=== PATIENT | female | born 1930 | race Caucasian/White ===

== ENCOUNTER 2016-12-14 05:47 | Emergency (ER) | payer MEDICARE, OTHER ==
--- NOTE | 2016-12-14 06:14 | EDM.PDOC ---
[id number] Chief Complaint: Respiratory Problem Stated Complaint: COUGH/DIZZY/EAR BUZZING Time Seen by Provider: 12/14/16 06:04 - Related Data Allergies/ADRs: Allergies Allergy/AdvReac Type Severity Reaction Status Date / Time nitrofurantoin Allergy Rash Verified 12/14/16 06:09 house dust AdvReac Cough Verified 12/14/16 05:59 peanut AdvReac Cough Verified 12/14/16 05:59 Sulfa (Sulfonamide AdvReac Diarrhea Verified 12/14/16 05:59 Antibiotics) popcorn AdvReac Cough Uncoded 10/08/15 14:39 Home Meds: Home Meds Aspirin [Ecotrin] 81 mg PO DAILY 11/09/14 [History] Fluticasone Propionate [Flovent HFA 110 MCG] 1 puff INH BID 11/09/14 [History] Furosemide 60 mg PO DAILY 11/09/14 [History] Isosorbide Mononitrate [Imdur] 15 mg PO DAILY 11/09/14 [History] Loratadine [Claritin] 10 mg PO DAILY PRN 11/09/14 [History] Metoprolol Succinate 50 mg PO DAILY 11/09/14 [History] Multivitamin [Multivitamins] 1 tab PO DAILY 11/09/14 [History] Ondansetron [Ondansetron ODT] 2 tab PO Q8HR PRN 01/07/15 [History] Polyethylene Glycol 3350 [MiraLAX] 17 gm PO DAILY 02/17/15 [History] Sennosides/Docusate Sodium [Senna-Docusate Sodium] 2 cap PO BID PRN 02/17/15 [ History] Albuterol Sulfate [Proair Respiclick] 90 mcg IH Q4H PRN 04/01/15 [History] Calcium Carbonate/Vitamin D3 [Calcium 500-Vit D3 200 Caplet] 1 tab PO DAILY 04/14 [History] Clotrimazole [Lotrimin AF 1% Top Soln] 1 applic TP DAILY PRN 10/07/15 [History] amLODIPine Bes/Olmesartan Med [Arely 10-40 MG] 5 mg PO DAILY 10/07/15 [History] Meclizine [Antivert] 25 mg PO Q8H PRN #30 tablet 01/16/16 [Rx] Acetaminophen with Codeine [Tylenol with Codeine #3 Tablet] 1 each PO Q4H PRN [History] Ascorbate Calcium [Vitamin C] 500 mg PO DAILY 12/14/16 [History] Ferrous Sulfate 650 mg PO DAILY 12/14/16 [History] Losartan [Cozaar] 50 mg PO DAILY 12/14/16 [History] Ofloxacin [Floxin 0.3% Otic Soln] 5 drop EARRT BID 12/14/16 [History] atorvaSTATin [Lipitor] 10 mg PO DAILY 12/14/16 [History] Course - Vital Signs Last Recorded V/S: Last Vital Signs Temp 36.4 C 12/14/16 05:55 Pulse 75 12/14/16 08:45 Resp 18 12/14/16 08:45 BP 141/78 H 12/14/16 08:45 Pulse Ox 94 L 12/14/16 08:45 - Orders/Labs/Meds Labs: Laboratory Tests 12/14/16 12/14/16 12/14/16 Range/Units 06:28 06:28 06:28 WBC 8.03 (3.98-10.04) K/mm3 RBC 4.20 (3.98-5.22) M/mm3 Hgb 12.2 (11.2-15.7) gm/L Hct 37.8 (34.1-44.9) % MCV 90.0 (79.4-94.8) fl MCH 29.0 (25.6-32.2) pg MCHC 32.3 (32.2-35.5) g/dl RDW Std Deviation 45.5 (36.4-46.3) fL Plt Count 204 (182-369) K/mm3 MPV 9.5 (9.4-12.3) fl Neutrophils % (Manual) 73 H (40-60) % Band Neutrophils % 2 (0-10) % Lymphocytes % (Manual) 18 L (20-40) % Atypical Lymphs % 0 % Monocytes % (Manual) 6 (2-10) % Eosinophils % (Manual) 1 (0.7-5.8) % Basophils % (Manual) 0 L (0.1-1.2) Platelet Estimate Adequate RBC Morph Comment Normal Sodium 142 (136-145) mEq/L Potassium 3.7 (3.5-5.1) mEq/L Chloride 106 (98-107) mEq/L Carbon Dioxide 29 (21-32) mEq/L Anion Gap 10.7 (5-15) BUN 19 H (7-18) mg/dL Creatinine 1.0 (0.55-1.02) mg/dL Est Cr Clr Drug Dosing 39.20 mL/min Estimated GFR (MDRD) 53 (>60) mL/min BUN/Creatinine Ratio 19.0 H (14-18) Glucose 113 (83-115) mg/dL Calcium 8.6 (8.5-10.1) mg/dL Total Bilirubin 0.5 (0.2-1.0) mg/dL AST 14 L (15-37) U/L ALT 19 (14-59) U/L Alkaline Phosphatase 61 (46-116) U/L CK-MB (CK-2) 1.3 (0-3.6) ng/ml Troponin I < 0.017 (0.00-0.056) ng/mL C-Reactive Protein 2.3 H* (<1.0) mg/dL B-Natriuretic Peptide 154 H (0-100) pg/mL Total Protein 6.4 (6.4-8.2) g/dl Albumin 3.3 L (3.4-5.0) g/dl Globulin 3.1 gm/dL Albumin/Globulin Ratio 1.1 (1-2) Mycoplasma pneumon IgM Negative (NEGATIVE) Meds: Medications Discontinued Medications Generic Name Dose Route Start Last Admin Trade Name Freq PRN Reason Stop Dose Admin Albuterol/Ipratropium 3 ml 12/14/16 06:23 12/14/16 06:36 Duoneb 3.0-0.5 Mg/3 Ml NEB 12/14/16 06:24 3 ml ONETIME ONE Administration Furosemide 40 mg 12/14/16 06:22 12/14/16 06:38 Lasix IVPUSH 12/14/16 06:23 40 mg NOW ONE Administration Sodium Chloride 10 ml 12/14/16 06:21 12/14/16 06:41 Saline Flush FLUSH 10 ml ASDIRECTED PRN Administration Keep Vein Open - Re-Assessments/Exams Free Text/Narrative Re-Assessment/Exam: 12/14/16 08;00. Have assumed care from Dr. Dumont at change of shift. I agree with his history and exam. Patient's main difficulty coming and is just frequent worsening cough over the past 10 days or so. The cough has been nonproductive but very annoying making it extremely difficult for her to sleep. Of note when asking about looking at her medication she states that she was recently started on losartan several weeks ago due to increased blood pressure readings. There is strong likelihood that she may be sensitive to that and does that may be her underlying problem triggering her uncontrollable coughing. Her chest x-ray looks good. White blood count was normal., CK-MB, BNP as well as other labs were all normal. Therefore we are going to stop the losartin. I've also asked that she work with her albuterol nebulizer when she is having more difficulty coughing like this. Discharge instructions as documented. Departure - Departure Time of Disposition: 08:23 Disposition: Home, Self-Care 01 Condition: fair Clinical Impression: Bronchitis Instructions: Acute Bronchitis, [id number] Referrals: Harmony Jordan, TECHNICAL ASST [Primary Care Provider] - Forms: ED Department Discharge Additional Instructions: stop the Lorsartin, that is likely causing your cough or at least contributing to your current frequent coughing. Continue to use your flonase and also use your albuterol inhaler 3 to 4 times daily to help reduce your coughing., drink plenty of water, cough drops, lemon drops as needed. Tussinex cough medication if needed for severe cough, especially at night to help you rest. Check your blood pressure twice daily and keep a log of that. Call for appointment to see Carmelita Jordan later this week. Bring your blood pressure readings in with you for that appointment. Return to ED as needed <Dc Dumont - Last Filed: 12/21/16 07:14> ED HISTORY OF PRESENT ILLNESS - General Source of Information: Reports: Patient History Limitations: Reports: No limitations - History of Present Illness INITIAL COMMENTS - FREE TEXT/NARRATIVE: 86-year-old lady attends the ED due to paroxysmal severe cough which she's had for the better part of 10 days. Seems to be worsening. Cough awoke her from sleep with a choking sensation she believes she did cough up some sputum but swallowed it. No associated fever or chills. Hoarse voice. Can't stop coughing at times. Associated dizziness which we attributed to vertigo which she's had in the past. She comes with cotton ball in her right ear. Denies any drainage from either ear. Does not wear hearing aids. Slightly runny nose. Appetite is fair been fair. She appreciates abdominal bloating and distention. Bowl function is still fairly normal. No vertigo at rest. This only with head movement. She has had this several times in the past. Denies any ear pain. Denies any central chest pain . Note she takes Lasix 60 mg daily suggesting chronic congestive failure. She states her legs are always swollen worse on the right as compared to the left. Usually wears compression stockings daily. Even her legs goes down overnight during rest. Symptom Onset Date: 12/14/16 (Vera paroxysmal cough that wouldn't quit this morning. However she's been coughing for the last 10-12 days. Intimal sputum production.) Timing/Duration: Reports: Day(s):, Getting worse Severity: moderate Location, General: Reports: chest (Paroxysmal coughing.), other (Occasional vertigo.) Improves with: Reports: None Worsens with: Reports: None Context, General: Reports: Other (Awoke from sleep with current symptoms.). Denies: Activity, Exercise, Lifting, Sick contact, Trauma Associated Symptoms (General): Reports: cough (Severe paroxysmal cough with intermittent sputum production), shortness of breath, weakness. 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 chronic cough Gastrointestinal History: Reports: Bowel obstruction, Chronic constipation, GERD (Occasional), Hemorrhoids Other Genitourinary History: Some renal problems with chemo Other OB/BYN History: hysterectomy Musculoskeletal History: Reports: Arthritis, Osteoarthritis, Osteoporosis, Other (see below) (Right total hip replacement) Other Musculoskeletal History: stenosis on back that was removed Neurological History: Reports: Vertigo (Recurrent problems with vertigo.), Other (see below) (CT scan reveals extensive small vessel ischemic changes. No lacunar infarcts. 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 - Past Surgical History Other GI Surgeries/Procedures: bowel resection, post op nausea and vomitting Social & Family History - Tobacco Use Smoking Status *Q: Never Smoker Second Hand Smoke Exposure: No - Alcohol Use Days Per Week of Alcohol Use: 0 Number of Drinks Per Day: 0 Total Drinks Per Week: 0 - Recreational Drug Use Recreational Drug Use: No Drug Use in Last 12 Months: No - Living Situation & Occupation Living situation: Reports: Occupation: retired ED ROS GENERAL - Review of Systems Review Of Systems: See Below Constitutional: Reports: malaise, weakness, fatigue, decreased appetite, weight loss. Denies: fever, chills HEENT: Reports: Hearing loss (Hearing is muffled bilaterally.), Other (Feels a homing buzzing in her right ear since she was coughing so much. ie. tinnitus ). Denies: Ear pain Respiratory: Reports: Shortness of Breath, Cough (Paroxysmal). Denies: Wheezing , Pleuritic Chest Pain, Hemoptysis Cardiovascular: Reports: Blood pressure problem, Dyspnea on exertion, Lightheadedness (At time). Denies: Chest pain, Claudication, Orthopnea ( Usually well controlled with medication), Syncope Endocrine: Reports: fatigue GI/Abdominal: Reports: Constipation, Other (Has appreciated increased abdominal bloat and increased flatus.) : Reports: frequency, incontinence (Mostly stress incontinence.) Musculoskeletal: Reports: neck pain, shoulder pain, back pain, joint pain ( Knees and hips. Has had right total hip replacement) Skin: Reports: no symptoms Neurological: Reports: Dizziness, Difficulty Walking (Usually uses a walker.), Weakness (Lower extremities). Denies: Headache (Vertigo at times.), Numbness, Paresthesia, Pre-Existing Deficit, Seizure, Syncope, Tingling, Tremors, Trouble Speaking, Gait Disturbance Psychiatric: Reports: Anxiety (Mildly anxious.) Hematologic/Lymphatic: Reports: no symptoms Immunologic: Reports: no symptoms ED EXAM, GENERAL - Physical Exam Exam: See Below Exam Limited By: No limitations General Appearance: alert, WD/WN, no apparent distress, other (Appears to loss weight since I have seen her last period) Eye Exam: bilateral eye: normal inspection (Mild pallor of the lower peripheral margins.) Ears: other (Tympanic membranes are not visible due to cerumen impaction bilaterally up against her eardrums.) Ear Exam: bilateral ear: foreign body (Both are impacted by cerumen.) Throat/Mouth: Normal inspection, Normal lips, Normal oropharynx, Other Head: atraumatic (Slight erythema of the posterior oropharynx. Not infected more irritation from coughing so much.), normocephalic Neck: normal inspection, supple, non-tender. No: carotid bruit, lymphadenopathy (L), lymphadenopathy (R) Respiratory/Chest: no respiratory distress, no accessory muscle use, chest non- tender, decreased breath sounds (Vessels are minimally decreased at both bases.) , rales (Few rales appreciated left base.), wheezing (GERD wheezes bilateral bases on expiration only.), other (Port-A-Cath present left upper anterior chest. She used this for chemotherapy for her B-cell lymphoma.) Cardiovascular: normal peripheral pulses, regular rate, rhythm, no murmur, no rub. No: no edema, no gallop Peripheral Pulses: 1+: posterior tibial (L), posterior tibial (R), dorsalis pedis (L), dorsalis pedis (R) GI/Abdominal: normal bowel sounds, soft, non tender, no organomegaly, distended (Few slightly distended intubated to percussion in all 4 quadrants. He aerophagia.) Back Exam: normal inspection, full range of motion, other (Mild kyphosis of the thoracic spine) Extremities: pedal edema (She has 2+ pitting edema on the right side and 1+ pitting edema on the left lower extremity to about mid tib-fib.), limited range of motion (Knees and hips. Evidence post arthritic changes in both knees.) Neurological: alert, oriented, CN II-XII intact, normal cognition, no motor/ sensory deficits Psychiatric: normal affect, normal mood Skin Exam: Warm, Dry, Intact, No rash (Slightly pallid.), Pallor EKG INTERPRETATION EKG Date: 12/14/16 Time: 06:30 Rhythm: NSR Rate (beats/min): 80 [place]: LAD-left axis deviation (Mild at -22) P-wave: present QRS: other (Initial poor R-wave progression.) ST-T: other (Nonspecific T wave inversion in lead aVL.) QT: normal EKG Interpretation Comments: No signs of ischemia. Course - Orders/Labs/Meds Labs: Laboratory Tests 12/14/16 12/14/16 12/14/16 Range/Units 06:28 06:28 06:28 WBC 8.03 (3.98-10.04) K/mm3 RBC 4.20 (3.98-5.22) M/mm3 Hgb 12.2 (11.2-15.7) gm/L Hct 37.8 (34.1-44.9) % MCV 90.0 (79.4-94.8) fl MCH 29.0 (25.6-32.2) pg MCHC 32.3 (32.2-35.5) g/dl RDW Std Deviation 45.5 (36.4-46.3) fL Plt Count 204 (182-369) K/mm3 MPV 9.5 (9.4-12.3) fl Neutrophils % (Manual) 73 H (40-60) % Band Neutrophils % 2 (0-10) % Lymphocytes % (Manual) 18 L (20-40) % Atypical Lymphs % 0 % Monocytes % (Manual) 6 (2-10) % Eosinophils % (Manual) 1 (0.7-5.8) % Basophils % (Manual) 0 L (0.1-1.2) Platelet Estimate Adequate RBC Morph Comment Normal Sodium 142 (136-145) mEq/L Potassium 3.7 (3.5-5.1) mEq/L Chloride 106 (98-107) mEq/L Carbon Dioxide 29 (21-32) mEq/L Anion Gap 10.7 (5-15) BUN 19 H (7-18) mg/dL Creatinine 1.0 (0.55-1.02) mg/dL Est Cr Clr Drug Dosing 39.20 mL/min Estimated GFR (MDRD) 53 (>60) mL/min BUN/Creatinine Ratio 19.0 H (14-18) Glucose 113 (83-115) mg/dL Calcium 8.6 (8.5-10.1) mg/dL Total Bilirubin 0.5 (0.2-1.0) mg/dL AST 14 L (15-37) U/L ALT 19 (14-59) U/L Alkaline Phosphatase 61 (46-116) U/L CK-MB (CK-2) 1.3 (0-3.6) ng/ml Troponin I < 0.017 (0.00-0.056) ng/mL C-Reactive Protein 2.3 H* (<1.0) mg/dL B-Natriuretic Peptide 154 H (0-100) pg/mL Total Protein 6.4 (6.4-8.2) g/dl Albumin 3.3 L (3.4-5.0) g/dl Globulin 3.1 gm/dL Albumin/Globulin Ratio 1.1 (1-2) Mycoplasma pneumon IgM Negative (NEGATIVE) Meds: Medications Discontinued Medications Generic Name Dose Route Start Last Admin Trade Name Freq PRN Reason Stop Dose Admin Albuterol/Ipratropium 3 ml 12/14/16 06:23 12/14/16 06:36 Duoneb 3.0-0.5 Mg/3 Ml NEB 12/14/16 06:24 3 ml ONETIME ONE Administration Furosemide 40 mg 12/14/16 06:22 12/14/16 06:38 Lasix IVPUSH 12/14/16 06:23 40 mg NOW ONE Administration Sodium Chloride 10 ml 12/14/16 06:21 12/14/16 06:41 Saline Flush FLUSH 10 ml ASDIRECTED PRN Administration Keep Vein Open - Radiology Interpretation Free Text/Narrative:: 86-year-old female attends the ED primarily due to paroxysmal severe cough that awoke her from sleep this produced very this morning. She's had a paroxysmal cough for several days. She can't necessarily ascertain it is worse when she lies down at nighttime. She has a history of asthma that is aggravated by cool air. She was coughing hard tonight and felt a buzzing sensation in her right ear and arise with cotton paige in it. She reports her hearing is muffled. She hasn't had acute vertigo episodes last few days one was yesterday morning. No falls. She has a history of recurrent benign positional vertigo. No associated nausea or vomiting. She reports she's been eating and drinking well. She does feel her abdomen is more bloated with much more gas than normal. One of her medications was changed 2 weeks ago but she's not sure which one. Exam reveals edema in both lower extremities. History of congestive heart failure. Lungs do not sound wet. They have mild expiratory wheezes at the bases. No clinical evidence of rhonchi. Questioning whether she is suffering a mild exacerbation of congestive heart failure with cardiac asthma and cough related to lung congestion. Plan saline lock. Lasix 40 mg IV. Note she normally takes 60 mg of Lasix in the mornings. Lab work will be done including mycoplasma 2 titer. Both ears were plugged with cerumen and will be irrigated by nursing staff. One view chest x-ray one view of the abdomen to be done. ECG reveals sinus rhythm at 80 per minute with no signs of ischemia.
[2016-12-14] MEDS ORDERED: Sodium Chloride 0.9% 10 ML Syringe FLUSH PRN (06:21)
[2016-12-14] MEDS ORDERED: Furosemide 40 MG/4 ML VIAL IVPUSH ONE (06:22)
[2016-12-14] MEDS ORDERED: Albuterol/Ipratropium 3.0-0.5 MG/3 ML Neb Soln NEB ONE (06:23)
--- NOTE | 2016-12-14 07:16 | CR ---
Abdomen: Supine view of the abdomen was obtained. Comparison: Previous abdominal x-ray of 11/12/14. Right hip prosthesis is seen. Degenerative change and mild scoliosis is noted within the spine. Vascular calcification is seen within the pelvis. Bowel gas pattern is within normal limits. Impression: 1. Incidental findings. Diagnostic code #2
--- NOTE | 2016-12-14 07:16 | CR ---
Chest: Frontal view of the chest was obtained. Comparison: Previous chest x-ray of 01/08/15. Heart is enlarged. Left-sided infusion port is seen. Lungs are hyperinflated but clear. Bony structures are grossly intact. Impression: 1. Cardiomegaly. Infusion port is seen from the left side. 2. Emphysematous change. 3. Nothing acute is otherwise seen on frontal chest x-ray. Diagnostic code #2
[2016-12-14 09:16] VITALS: BP 141/78
== END 2016-12-14 08:45 | disposition home or self-care (01) ==
LOC: JD.ED 05:47
DX: J40 Bronchitis, not specified as acute or chronic (principal); I11.0 Hypertensive heart disease with heart failure; I50.9 Heart failure, unspecified; I48.91 Unspecified atrial fibrillation; J45.909 Unspecified asthma, uncomplicated; K21.9 Gastro-esophageal reflux disease without esophagitis; Z90.710 Acquired absence of both cervix and uterus; M19.90 Unspecified osteoarthritis, unspecified site; D64.9 Anemia, unspecified; Z88.8 Allergy status to other drugs, medicaments and biological substances; Z91.010 Allergy to peanuts; Z91.018 Allergy to other foods; Z91.09 Other allergy status, other than to drugs and biological substances; Z88.2 Allergy status to sulfonamides; Z79.82 Long term (current) use of aspirin; Z79.899 Other long term (current) drug therapy
CPT/HCPCS: 36415; 71010; 74000; 80053; 82553; 83880; 84484; 85025; 86140; 86738; 93005; 94664; 96374; 99284; J1940; J7050

== ENCOUNTER 2017-10-18 20:08 | Inpatient (IN) | payer MEDICARE, OTHER ==
[2017-10-18] MEDS ORDERED: Sodium Chloride 0.9% 10 ML Syringe FLUSH PRN (20:21)
[2017-10-18] MEDS ORDERED: Albuterol/Ipratropium 3.0-0.5 MG/3 ML Neb Soln NEB ONE (20:25)
[2017-10-18] MEDS ORDERED: cefTRIAXone 2 GM in Sodium Chloride 0.9% 100 ML IV ONE (20:25)
--- NOTE | 2017-10-18 20:35 | EDM.PDOC ---
ED HPI GENERAL MEDICAL PROBLEM - General Chief Complaint: Fever Stated Complaint: FEVER/COUGH/DX W PNEUMONIA Time Seen by Provider: 10/18/17 20:16 Source of Information: Reports: Patient, Family History Limitations: Reports: No Limitations - History of Present Illness INITIAL COMMENTS - FREE TEXT/NARRATIVE: The patient presents with a cough, fever and shortness of breath. This started last week and she was seen by the [facility] [place] on Wednesday and diagnosed with pneumonia. She was put on levaquin. She has not gotten any better. She still has a fever and productive cough. She is also short of breath. She is weak and not eating as much. She has no chest pain, abdominal pain, nausea or vomiting. Onset: Gradual Duration: Day(s): (5) Severity: Moderate Improves with: Reports: None Worsens with: Reports: None Associated Symptoms: Reports: Cough, cough w sputum, Fever/Chills, Loss of Appetite, Shortness of Breath. Denies: Chest Pain, Headaches, Nausea/Vomiting Chest Pain Score (Numeric/FACES): 4 - Related Data Allergies Allergy/AdvReac Type Severity Reaction Status Date / Time nitrofurantoin Allergy Rash Verified 10/18/17 20:15 house dust AdvReac Cough Verified 10/18/17 20:15 peanut AdvReac Cough Verified 10/18/17 20:15 Sulfa (Sulfonamide AdvReac Diarrhea Verified 10/18/17 20:15 Antibiotics) popcorn AdvReac Cough Uncoded 10/08/15 14:39 Home Meds: Home Meds Aspirin [Ecotrin] 81 mg PO DAILY 11/09/14 [History] Fluticasone Propionate [Flovent HFA 110 MCG] 1 puff INH BID 11/09/14 [History] Furosemide 60 mg PO DAILY 11/09/14 [History] Isosorbide Mononitrate [Imdur] 15 mg PO DAILY 11/09/14 [History] Loratadine [Claritin] 10 mg PO DAILY PRN 11/09/14 [History] Metoprolol Succinate 50 mg PO DAILY 11/09/14 [History] Multivitamin [Multivitamins] 1 tab PO DAILY 11/09/14 [History] Ondansetron [Ondansetron ODT] 2 tab PO Q8HR PRN 01/07/15 [History] Polyethylene Glycol 3350 [MiraLAX] 17 gm PO DAILY 02/17/15 [History] Sennosides/Docusate Sodium [Senna-Docusate Sodium] 2 cap PO BID PRN 02/17/15 [ History] Albuterol Sulfate [Proair Respiclick] 90 mcg IH Q4H PRN 04/01/15 [History] Calcium Carbonate/Vitamin D3 [Calcium 500-Vit D3 200 Caplet] 1 tab PO DAILY 04/14 [History] Acetaminophen with Codeine [Tylenol with Codeine #3 Tablet] 1 each PO Q4H PRN [History] atorvaSTATin [Lipitor] 10 mg PO DAILY 12/14/16 [History] Allopurinol [Zyloprim] 200 mg PO DAILY 10/18/17 [History] Cranberry Fruit Concentrate [Cranberry] 450 mg PO DAILY 10/18/17 [History] Rivaroxaban [Xarelto] 20 mg PO DAILY 10/18/17 [History] amLODIPine Bes/Olmesartan Med [Arely 10-40 MG] 1 tab PO DAILY 10/18/17 [History] oxyCODONE HCl/Acetaminophen [Percocet 5-325 mg Tablet] 1 tab PO ASDIRECTED PRN 10/18/17 [History] Past Medical History HEENT History: Reports: Impaired Vision, Macular Degeneration Other HEENT History: wears glasses Cardiovascular History: Reports: Afib, Heart Failure, Hypertension, SOB on Exertion Other Cardiovascular History: DVT, lower extremity edema, Afib was briefly post up Respiratory History: Reports: Asthma Other Respiratory History: asthma is trigered by allergens and cold weather and upper respiratory infections. 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 - Past Surgical History HEENT Surgical History: Reports: Cataract Surgery Musculoskeletal Surgical History: Reports: Hip Replacement Social & Family History - Tobacco Use Smoking Status *Q: Never Smoker Second Hand Smoke Exposure: No - Alcohol Use Days Per Week of Alcohol Use: 0 Number of Drinks Per Day: 0 Total Drinks Per Week: 0 - Recreational Drug Use Recreational Drug Use: No Drug Use in Last 12 Months: No - Living Situation & Occupation Living situation: Reports: Occupation: Retired ED ROS GENERAL - Review of Systems Review Of Systems: See Below Constitutional: Reports: Fever, Chills, Malaise, Weakness, Fatigue HEENT: Reports: No Symptoms Respiratory: Reports: Shortness of Breath, Cough, Sputum Cardiovascular: Reports: No Symptoms Endocrine: Reports: No Symptoms GI/Abdominal: Reports: No Symptoms : Reports: No Symptoms Musculoskeletal: Reports: No Symptoms ED EXAM, GENERAL - Physical Exam Exam: See Below Exam Limited By: No Limitations General Appearance: Alert, No Apparent Distress Ears: Normal External Exam Nose: Normal Inspection Head: Atraumatic, Normocephalic Neck: Normal Inspection Respiratory/Chest: No Respiratory Distress, Rhonchi Cardiovascular: Regular Rate, Rhythm, No Edema, No Murmur GI/Abdominal: Soft, Non-Tender, No Organomegaly, No Mass Back Exam: Normal Inspection Extremities: Normal Inspection Course - Vital Signs Last Recorded V/S: Last Vital Signs Temp 100.1 F 10/18/17 20:31 Pulse 91 10/18/17 20:31 Resp 18 10/18/17 20:31 BP 175/68 H 10/18/17 20:31 Pulse Ox 97 10/18/17 20:31 - Orders/Labs/Meds Orders: Active Orders 24 hr Category Date Time Status Cardiac Monitoring [RC] . DIRECTED Care 10/18/17 20:21 Active Oxygen Therapy [RC] PRN Care 10/18/17 20:21 Active Peripheral IV Care [RC] . DIRECTED Care 10/18/17 20:22 Active RT Aerosol Therapy [RC] ASDIRECTED Care 10/18/17 20:25 Active Chest 2V [CR] Stat Exams 10/18/17 20:23 Taken CULTURE BLOOD [BC] Stat Lab 10/18/17 20:38 Received CULTURE BLOOD [BC] Stat Lab 10/18/17 20:47 Received INFLUENZA A+B AG SCREEN [RM] Stat Lab 10/18/17 21:57 Received UA W/MICROSCOPIC [URIN] Stat Lab 10/18/17 20:21 Ordered Sodium Chloride 0.9% [Saline Flush] Med 10/18/17 20:21 Active 10 ml FLUSH ASDIRECTED PRN Blood Culture x2 Reflex Set [OM.PC] Stat Oth 10/18/17 20:23 Ordered Peripheral IV Insertion Adult [OM.PC] Stat Oth 10/18/17 20:21 Ordered Medication Orders Sodium Chloride (Saline Flush) 10 ml FLUSH ASDIRECTED PRN PRN Reason: Keep Vein Open Last Admin: 10/18/17 21:14 Dose: 10 ml Labs: Laboratory Tests 10/18/17 10/18/17 10/18/17 Range/Units 20:38 20:38 20:38 WBC 11.35 H (3.98-10.04) K/mm3 RBC 4.76 (3.98-5.22) M/mm3 Hgb 13.5 (11.2-15.7) gm/L Hct 41.7 (34.1-44.9) % MCV 87.6 (79.4-94.8) fl MCH 28.4 (25.6-32.2) pg MCHC 32.4 (32.2-35.5) g/dl RDW Std Deviation 49.2 H (36.4-46.3) fL Plt Count 217 (182-369) K/mm3 MPV 10.1 (9.4-12.3) fl Neut % (Auto) 69.7 (34.0-71.1) % Lymph % (Auto) 13.0 L (19.3-51.7) % [place] % (Auto) 15.2 H (4.7-12.5) % Eos % (Auto) 1.7 (0.7-5.8) Baso % (Auto) 0.3 (0.1-1.2) % Neut # (Auto) 7.91 H (1.56-6.13) K/mm3 Lymph # (Auto) 1.48 (1.18-3.74) K/mm3 [place] # (Auto) 1.73 H (0.24-0.36) K/mm3 Eos # (Auto) 0.19 (0.04-0.36) K/mm3 Baso # (Auto) 0.03 (0.01-0.08) K/mm3 Manual Slide Review Normal smear Sodium 142 (136-145) mEq/L Potassium 3.6 (3.5-5.1) mEq/L Chloride 104 (98-107) mEq/L Carbon Dioxide 27 (21-32) mEq/L Anion Gap 14.6 (5-15) BUN 27 H (7-18) mg/dL Creatinine 1.4 H (0.55-1.02) mg/dL Est Cr Clr Drug Dosing 27.50 mL/min Estimated GFR (MDRD) 36 (>60) mL/min BUN/Creatinine Ratio 19.3 H (14-18) Glucose 205 H (83-115) mg/dL Lactic Acid 1.3 (0.4-2.0) mmol/L Calcium 9.3 (8.5-10.1) mg/dL Total Bilirubin 0.4 (0.2-1.0) mg/dL AST 16 (15-37) U/L ALT 24 (14-59) U/L Alkaline Phosphatase 52 (46-116) U/L C-Reactive Protein 0.5 (<1.0) mg/dL Total Protein 6.9 (6.4-8.2) g/dl Albumin 3.7 (3.4-5.0) g/dl Globulin 3.2 gm/dL Albumin/Globulin Ratio 1.2 (1-2) Meds: Medications Generic Name Dose Route Start Last Admin Trade Name [place] PRN Reason Stop Dose Admin Sodium Chloride 10 ml 10/18/17 20:21 10/18/17 21:14 Saline Flush FLUSH 10 ml ASDIRECTED PRN Administration Keep Vein Open Discontinued Medications Generic Name Dose Route Start Last Admin Trade Name Paris PRN Reason Stop Dose Admin Albuterol/Ipratropium 3 ml 10/18/17 20:25 10/18/17 20:59 Duoneb 3.0-0.5 Mg/3 Ml NEB 10/18/17 20:26 3 ml ONETIME ONE Administration Ceftriaxone Sodium 2 gm/ 100 mls @ 200 mls/hr 10/18/17 20:25 10/18/17 21:14 Sodium Chloride IV 10/18/17 20:54 200 mls/hr ONETIME ONE Administration - Re-Assessments/Exams Free Text/Narrative Re-Assessment/Exam: 10/18/17 20:36 I ordered an IV saline lock, CXR, influenza, labs, blood cultures and rocephin. 10/18/17 22:15 Her CXR shows an infiltrate in the right lower lung. Her WBC is slightly elevated at 11.35. Her creatinine is slightly elevated at 1.4. Her glucose is 205. Her lactic acid is normal is 1.3. I do not have the influenza back. She has pneumonia and she failed outpatient therapy. I feel she needs to be admitted. I called Dr Sanderson and he agreed to the admission. Departure - Departure Time of Disposition: 22:20 Disposition: Admitted As Inpatient 68 Condition: Fair Clinical Impression: Pneumonia Qualifiers: Pneumonia type: due to unspecified organism Laterality: right Lung location: middle lobe of lung Qualified Code(s): J18.1 - Lobar pneumonia, unspecified organism - Discharge Information Referrals: Harmony Jordan NP [Primary Care Provider] - Forms: ED Department Discharge - My Orders Last 24 Hours: My Active Orders 10/18/17 20:21 Cardiac Monitoring [RC] . DIRECTED Oxygen Therapy [RC] PRN UA W/MICROSCOPIC [URIN] Stat Sodium Chloride 0.9% [Saline Flush] 10 ml FLUSH ASDIRECTED PRN Peripheral IV Insertion Adult [OM.PC] Stat 10/18/17 20:22 Peripheral IV Care [RC] . DIRECTED 10/18/17 20:23 Chest 2V [CR] Stat Blood Culture x2 Reflex Set [OM.PC] Stat 10/18/17 20:25 RT Aerosol Therapy [RC] ASDIRECTED 10/18/17 20:38 CULTURE BLOOD [BC] Stat 10/18/17 20:47 CULTURE BLOOD [BC] Stat 10/18/17 21:57 INFLUENZA A+B AG SCREEN [RM] Stat - Assessment/Plan Last 24 Hours: My Active Orders 10/18/17 20:21 Cardiac Monitoring [RC] . DIRECTED Oxygen Therapy [RC] PRN UA W/MICROSCOPIC [URIN] Stat Sodium Chloride 0.9% [Saline Flush] 10 ml FLUSH ASDIRECTED PRN Peripheral IV Insertion Adult [OM.PC] Stat 10/18/17 20:22 Peripheral IV Care [RC] . DIRECTED 10/18/17 20:23 Chest 2V [CR] Stat Blood Culture x2 Reflex Set [OM.PC] Stat 10/18/17 20:25 RT Aerosol Therapy [RC] ASDIRECTED 10/18/17 20:38 CULTURE BLOOD [BC] Stat 10/18/17 20:47 CULTURE BLOOD [BC] Stat 10/18/17 21:57 INFLUENZA A+B AG SCREEN [] Stat
[2017-10-18] MEDS ORDERED: Oseltamivir 75 MG Cap PO ONE (22:21)
[2017-10-19] MEDS ORDERED: Acetaminophen/Codeine 300-30 MG Tab PO PRN (00:04)
[2017-10-19] MEDS ORDERED: Acetaminophen/oxyCODONE 325-5 MG Tab PO PRN (00:04)
[2017-10-19] MEDS ORDERED: Ondansetron 4 MG Tab.DIS PO PRN (00:04)
[2017-10-19] MEDS ORDERED: Loratadine 10 MG Tab PO PRN (00:04)
[2017-10-19] MEDS ORDERED: LORazepam 2 MG/ML MDV IVPUSH PRN (00:09)
[2017-10-19] MEDS ORDERED: Metoprolol Tartrate 5 MG/5 ML SDV IVPUSH PRN (00:09)
[2017-10-19] MEDS ORDERED: hydrALAZINE 20 MG/ML SDV IVPUSH PRN (00:09)
[2017-10-19] MEDS ORDERED: Ondansetron 4 MG/2 ML SDV IV PRN (00:22)
[2017-10-19] MEDS ORDERED: Albuterol/Ipratropium 3.0-0.5 MG/3 ML Neb Soln NEB PRN (00:22)
[2017-10-19] MEDS ORDERED: Acetaminophen 325 MG Tab PO PRN (00:22)
--- NOTE | 2017-10-19 00:31 | PCM.HP ---
H&P History of Present Illness - General Date of Service: 10/19/17 Admit Problem/Dx: Admission Diagnosis/Problem Admission Diagnosis/Problem Pneumonia Source of Information: Patient, Provider, RN, RN Notes Reviewed History Limitations: Reports: No Limitations - History of Present Illness Initial Comments - Free Text/Narative: Delilah Negrete is an 87 yo female who since her ED today (10/18/17) with a cough , fever, and shortness of breath. She reports the symptoms started last week and she was seen at the walk-in clinic at [place] on Wednesday and diagnosed with pneumonia. She was started on Levaquin at that time, however symptoms have not gotten any better. She reports she still has a fever and productive cough, along with shortness of breath. She is weak and not eating much. Denied chest pain, abdominal pain, nausea, vomiting. In the yarsani was 100.1. Pulse 91. Respirations 18. BP was high at 175/68. Pulse ox 97%. Labs are obtained: WBC is elevated at 11.35. Hemoglobin is 13.5. Hematocrit 41.7. She was normocytic. Closer elevated at 217,000. Neutrophils are normal at 69.7%. Sodium good 142. Potassium 3.6. Chloride 104. Carbon dioxide 27. Anion gap 14.6. BUN is high at 27. Creatinine is high at 1.4. EGFR is 36. Glucose is 205. Lactic acid 1.3. Calcium 9.3. Total bilirubin 0.4. Liver enzymes looked good with AST of 16, ALT at 24, alkaline phosphatase 52. CRP is 0.5. Albumin is good at 3.7. Influenza returns positive for influenza A. Blood cultures are obtained. She was given 2 g Rocephin in the ED. There is a questionable infiltrate in the right lower lung. She carries a history of: Impaired vision, macular degeneration, A. fib, heart failure, hypertension, DVT, chronic lower extremity edema, asthma triggered by allergens and cold weather, chronic cough, chronic constipation, GERD, hysterectomy, arthritis, osteoporosis, osteoporosis, vertigo, anemia, stage III large beta cell lymphoma, non-Albert lymphoma. Lymphoma was reportedly treated successfully with chemotherapy. She was never a smoker. She says really admitted to the medical floor on telemetry. Her PCP is Harmony Jordan NP at [facility]. Chest Pain Score (Numeric/FACES): 4 - Related Data Allergies/Adverse Reactions: Allergies Allergy/AdvReac Type Severity Reaction Status Date / Time nitrofurantoin Allergy Rash Verified 10/18/17 20:15 house dust AdvReac Cough Verified 10/18/17 20:15 peanut AdvReac Cough Verified 10/18/17 20:15 Sulfa (Sulfonamide AdvReac Diarrhea Verified 10/18/17 20:15 Antibiotics) popcorn AdvReac Cough Uncoded 10/08/15 14:39 Home Medications: Home Meds Aspirin [Ecotrin] 81 mg PO DAILY 11/09/14 [History] Fluticasone Propionate [Flovent HFA 110 MCG] 1 puff INH BID 11/09/14 [History] Furosemide 60 mg PO DAILY 11/09/14 [History] Isosorbide Mononitrate [Imdur] 15 mg PO DAILY 11/09/14 [History] Loratadine [Claritin] 10 mg PO DAILY 11/09/14 [History] Metoprolol Succinate 50 mg PO DAILY 11/09/14 [History] Multivitamin [Multivitamins] 1 tab PO DAILY 11/09/14 [History] Ondansetron [Ondansetron ODT] 2 tab PO Q8HR PRN 01/07/15 [History] Polyethylene Glycol 3350 [MiraLAX] 17 gm PO DAILY 02/17/15 [History] Sennosides/Docusate Sodium [Senna-Docusate Sodium] 2 cap PO BID PRN 02/17/15 [ History] Albuterol Sulfate [Proair Respiclick] 90 mcg IH Q4H PRN 04/01/15 [History] Calcium Carbonate/Vitamin D3 [Calcium 500-Vit D3 200 Caplet] 1 tab PO DAILY 04/14 [History] atorvaSTATin [Lipitor] 10 mg PO DAILY 12/14/16 [History] Allopurinol [Zyloprim] 200 mg PO DAILY 10/18/17 [History] Cranberry Fruit Concentrate [Cranberry] 450 mg PO DAILY 10/18/17 [History] Rivaroxaban [Xarelto] 20 mg PO 1700 10/18/17 [History] amLODIPine Bes/Olmesartan Med [Arely 10-40 MG] 1 tab PO DAILY 10/18/17 [History] oxyCODONE HCl/Acetaminophen [Percocet 5-325 mg Tablet] 1 tab PO Q4HR PRN [History] Past Medical History HEENT History: Reports: Impaired Vision, Macular Degeneration Other HEENT History: wears glasses Cardiovascular History: Reports: Afib, Blood Clots/VTE/DVT, Heart Failure, Hypertension, SOB on Exertion Other Cardiovascular History: DVT, lower extremity edema, Afib was briefly post op Respiratory History: Reports: Asthma Other Respiratory History: asthma is triggered by allergens and cold weather and upper respiratory infections. 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 - Infectious Disease History Infectious Disease History: Reports: Influenza - Past Surgical History Head Surgeries/Procedures: Reports: None HEENT Surgical History: Reports: Cataract Surgery GI Surgical History: Reports: Other (See Below) Other GI Surgeries/Procedures: resection Endocrine Surgical History: Reports: None Neurological Surgical History: Reports: Other (See Below) Other Neurological Surgeries/Procedures: spinal stenosis surgery Musculoskeletal Surgical History: Reports: Hip Replacement Social & Family History - Family History Family Medical History: Noncontributory Oncologic: Reports: Bladder, Bone - Tobacco Use Smoking Status *Q: Never Smoker Second Hand Smoke Exposure: No - Caffeine Use Caffeine Use: Reports: Coffee, Soda - Alcohol Use Days Per Week of Alcohol Use: 0 Number of Drinks Per Day: 0 Total Drinks Per Week: 0 - Recreational Drug Use Recreational Drug Use: No Drug Use in Last 12 Months: No - Living Situation & Occupation Living situation: Reports: Occupation: Retired H&P Review of Systems - Review of Systems: Review Of Systems: See Below General: Reports: Fever, Chills, Malaise, Weakness, Fatigue HEENT: Denies: Ear Pain, Eye Pain, Rhinitis, Sinus Congestion, Sore Throat Pulmonary: Reports: Shortness of Breath, Cough, Sputum Cardiovascular: Reports: Dyspnea on Exertion, Edema (chronic ). Denies: Chest Pain, Palpitations Gastrointestinal: Reports: No Symptoms. Denies: Abdominal Pain, Constipation, Diarrhea, Nausea, Vomiting Genitourinary: Reports: No Symptoms. Denies: Dysuria, Frequency, Burning, Pain , Urgency Musculoskeletal: Reports: No Symptoms Skin: Reports: No Symptoms Psychiatric: Reports: No Symptoms Neurological: Reports: No Symptoms Hematologic/Lymphatic: Reports: No Symptoms Immunologic: Reports: No Symptoms Exam - Exam Exam: See Below - Vital Signs Vital Signs: Last Vital Signs Temp 99.8 F 10/18/17 22:41 Pulse 88 10/18/17 22:41 Resp 22 H 10/18/17 22:41 BP 171/60 H 10/18/17 22:41 Pulse Ox 97 10/18/17 22:41 Weight: 166 lb 11.2 oz - Exam Quality Assessment: DVT Prophylaxis General: Alert, Oriented, Cooperative, Mild Distress HEENT: PERRLA, Hearing Intact, Mucosa Moist & [place], Nares Patent, Normal Nasal Septum, Posterior Pharynx Clear, Conjunctiva Clear, EOMI, EACs Clear, TMs Clear Neck: Supple, Trachea Midline. No: JVD Lungs: Clear to Auscultation, Normal Respiratory Effort, Decreased Breath Sounds Cardiovascular: Regular Rate, Regular Rhythm GI/Abdominal Exam: Normal Bowel Sounds, Soft, Non-Tender, No Organomegaly, No Distention, No Abnormal Bruit, No Mass, Pelvis Stable (Female) Exam: Deferred Rectal (Female) Exam: Deferred Back Exam: Normal Inspection, Full Range of Motion Extremities: Normal Inspection, Normal Range of Motion, Non-Tender, Normal Capillary Refill, Pedal Edema (1+ chronic per pt. report) Peripheral Pulses: 0: Posterior Tibial (L), Posterior Tibial (R), Dorsalis Pedis (L), Dorsalis Pedis (R), 2+: Radial (L), Radial (R) Skin: Warm, Dry, Intact Neurological: Cranial Nerves Intact (grossly ) Neuro Extensive - Mental Status: Alert, Oriented x3, Normal Mood/Affect, Normal Cognition Psychiatric: Alert, Normal Affect, Normal Mood - Patient Data Result Diagrams: 10/18/17 20:38 10/18/17 20:38 *Q Meaningful Use (ADM) - VTE *Q VTE Criteria *Q: - Stroke *Q Stroke Criteria *Q: - AMI *Q AMI Criteria *Q: - Problem List (1) Influenza A SNOMED Code(s): 674084624 ICD Code: J10.1 - FLU DUE TO OTH IDENT INFLUENZA VIRUS W OTH RESP MANIFEST Status: Acute Priority: High Current Visit: Yes (2) Macular degeneration SNOMED Code(s): 366545065 ICD Code: H35.30 - UNSPECIFIED MACULAR DEGENERATION Status: Chronic Priority: Low Current Visit: No Qualifiers: Macular degeneration type: unspecified type Eye laterality: unspecified Qualified Code(s): H35.30 - Unspecified macular degeneration (3) Heart failure SNOMED Code(s): 75996055 ICD Code: I50.9 - HEART FAILURE, UNSPECIFIED Status: Chronic Priority: Low Current Visit: No Qualifiers: Heart failure type: unspecified Heart failure chronicity: unspecified Qualified Code(s): I50.9 - Heart failure, unspecified (4) HTN (hypertension) SNOMED Code(s): 86985652 ICD Code: I10 - ESSENTIAL (PRIMARY) HYPERTENSION Status: Acute Priority: Medium Current Visit: Yes Qualifiers: Hypertension type: unspecified Qualified Code(s): I10 - Essential (primary ) hypertension (5) Lower extremity edema SNOMED Code(s): 696651311 ICD Code: R60.0 - LOCALIZED EDEMA Status: Chronic Priority: Low Current Visit: Yes (6) History of deep venous thrombosis or pulmonary embolus SNOMED Code(s): 548449915 ICD Code: [id number] - Status: Chronic Priority: Low Current Visit: No (7) Asthma SNOMED Code(s): 789702572 ICD Code: J45.909 - UNSPECIFIED ASTHMA, UNCOMPLICATED Status: Chronic Priority: Low Current Visit: No Qualifiers: Asthma severity: unspecified severity Asthma persistence: unspecified Asthma complication type: unspecified Qualified Code(s): J45.909 - Unspecified asthma, uncomplicated (8) GERD (gastroesophageal reflux disease) SNOMED Code(s): 707766133 ICD Code: K21.9 - GASTRO-ESOPHAGEAL REFLUX DISEASE WITHOUT ESOPHAGITIS Status: Chronic Priority: Low Current Visit: No Qualifiers: Esophagitis presence: esophagitis presence not specified Qualified Code(s) : K21.9 - Gastro-esophageal reflux disease without esophagitis (9) Arthritis SNOMED Code(s): 0035446 ICD Code: M19.90 - UNSPECIFIED OSTEOARTHRITIS, UNSPECIFIED SITE Status: Chronic Priority: Low Current Visit: No (10) Osteoarthritis SNOMED Code(s): 883755030 ICD Code: M19.90 - UNSPECIFIED OSTEOARTHRITIS, UNSPECIFIED SITE Status: Chronic Priority: Low Current Visit: No Qualifiers: Osteoarthritis location: unspecified site Osteoarthritis type: primary Qualified Code(s): M19.91 - Primary osteoarthritis, unspecified site (11) Age related osteoporosis SNOMED Code(s): 439840321 ICD Code: M81.0 - AGE-RELATED OSTEOPOROSIS W/O CURRENT PATHOLOGICAL FRACTURE Status: Chronic Priority: Low Current Visit: No Qualifiers: Presence of current pathological fracture: unspecified Qualified Code(s): M81.0 - Age-related osteoporosis without current pathological fracture (12) Lymphoma SNOMED Code(s): 118522617 ICD Code: C85.90 - NON-HODGKIN LYMPHOMA, UNSPECIFIED, UNSPECIFIED SITE Status: Chronic Priority: Low Current Visit: No Qualifiers: Lymphoma type: unspecified type Lymphoma site: unspecified region Qualified Code(s): C85.90 - Non-Hodgkin lymphoma, unspecified, unspecified site Problem List Initiated/Reviewed/Updated: Yes Orders Last 24hrs: Active Orders 24 hr Category Date Time Status Ambulate [RC] PER UNIT ROUTINE Care 10/19/17 00:21 Ordered Antiembolic Devices [RC] PER UNIT ROUTINE Care 10/19/17 00:21 Ordered Height and Weight [RC] DAILY Care 10/19/17 00:20 Ordered Intake and Output [RC] QSHIFT Care 10/19/17 00:21 Ordered Pulse Oximetry [RC] PRN Care 10/19/17 00:21 Ordered RT Aerosol Therapy [RC] ASDIRECTED Care 10/19/17 00:23 Ordered Up With Assistance [RC] ASDIRECTED Care 10/19/17 00:20 Ordered VTE/DVT Education [RC] PER UNIT ROUTINE Care 10/19/17 00:20 Ordered Vital Signs [RC] Q4H Care 10/19/17 00:20 Ordered Consult to Case Management [CONS] Routine Cons 10/19/17 00:22 Ordered OT Evaluation and Treatment [CONS] Routine Cons 10/19/17 00:22 Ordered PT Evaluation and Treatment [CONS] Routine Cons 10/19/17 00:22 Ordered Heart Healthy Diet [DIET] Diet 10/19/17 Breakfast Ordered BASIC METABOLIC PANEL,BMP [CHEM] AM Lab 10/19/17 05:11 Ordered BASIC METABOLIC PANEL,BMP [CHEM] AM Lab 10/20/17 05:11 Ordered BASIC METABOLIC PANEL,BMP [CHEM] AM Lab 10/21/17 05:11 Ordered BASIC METABOLIC PANEL,BMP [CHEM] AM Lab 10/22/17 05:11 Ordered CBC WITH AUTO DIFF [HEME] AM Lab 10/19/17 05:11 Ordered CBC WITH AUTO DIFF [HEME] AM Lab 10/20/17 05:11 Ordered CBC WITH AUTO DIFF [HEME] AM Lab 10/21/17 05:11 Ordered CBC WITH AUTO DIFF [HEME] AM Lab 10/22/17 05:11 Ordered MAGNESIUM [CHEM] AM Lab 10/19/17 05:11 Ordered MAGNESIUM [CHEM] AM Lab 10/20/17 05:11 Ordered MAGNESIUM [CHEM] AM Lab 10/21/17 05:11 Ordered MAGNESIUM [CHEM] AM Lab 10/22/17 05:11 Ordered METH-RESIST S.AUR,MRSA BY PCR [MOLEC] Routine Lab 10/19/17 00:21 Ordered Acetaminophen [Tylenol] Med 10/19/17 00:22 Ordered 650 mg PO Q4H PRN Acetaminophen/Codeine [Tylenol with Codeine No.3 300MG/ Med 10/19/17 00:04 Ordered 30MG] DOSE tab PO Q4H PRN Acetaminophen/oxyCODONE [Percocet 325-5 MG] Med 10/19/17 00:04 Ordered 1 tab PO ASDIRECTED PRN Albuterol/Ipratropium [DuoNeb 3.0-0.5 MG/3 ML] Med 10/19/17 00:22 Ordered 3 ml NEB Q4H PRN Allopurinol [Zyloprim] Med 10/19/17 09:00 Ordered 200 mg PO DAILY Aspirin [Halfprin] Med 10/19/17 09:00 Ordered 81 mg PO DAILY Benzonatate [Tessalon Perles] Med 10/19/17 00:19 Ordered 200 mg PO BID PRN Calcium Carbonate/Vitamin D3 Med 10/19/17 09:00 Ordered 1 tab PO DAILY Cranberry Fruit Concentrate [Cranberry] Med 10/19/17 09:00 Ordered 450 mg PO DAILY Docusate Sodium/Sennosides [Senna Plus] Med 10/19/17 00:04 Ordered DOSE tab PO BID PRN Furosemide [Lasix] Med 10/19/17 09:00 Ordered 60 mg PO DAILY Isosorbide Mononitrate [Imdur] Med 10/19/17 09:00 Ordered 15 mg PO DAILY LORazepam [Ativan] Med 10/19/17 00:09 Ordered 2 mg IVPUSH Q4H PRN Loratadine [Claritin] Med 10/19/17 00:04 Ordered 10 mg PO DAILY PRN Magnesium Rep Pharmacy to Dose [Pharmacy to Dose - Med 10/19/17 00:15 Ordered Magnesium Replacement] 1 dose .XX ASDIRECTED Metoprolol Succinate [Toprol XL] Med 10/19/17 09:00 Ordered 50 mg PO DAILY Metoprolol Tartrate [Lopressor] Med 10/19/17 00:09 Ordered 5 mg IVPUSH Q4H PRN Multivitamin [Multivitamins] Med 10/19/17 09:00 Ordered 1 tab PO DAILY Ondansetron [Zofran ODT] Med 10/19/17 00:04 Ordered DOSE mg PO Q8HR PRN Ondansetron [Zofran] Med 10/19/17 00:22 Ordered 4 mg IV Q6H PRN Polyethylene Glycol 3350 [MiraLAX] Med 10/19/17 09:00 Ordered 17 gm PO DAILY Potassium Rep Pharmacy to Dose [Pharmacy to Dose - Med 10/19/17 00:15 Ordered Potassium Replacement] 1 dose .XX ASDIRECTED Rivaroxaban [Xarelto] Med 10/19/17 09:00 Ordered 20 mg PO DAILY amLODIPine Bes/Olmesartan Med [Arely 10-40 MG] Med 10/19/17 09:00 Ordered 1 tab PO DAILY atorvaSTATin Med 10/19/17 09:00 Ordered 10 mg PO DAILY hydrALAZINE [Apresoline] Med 10/19/17 00:09 Ordered 10 mg IVPUSH Q4H PRN Antiembolic Hose [OM.PC] Per Unit Routine Oth 10/19/17 00:21 Ordered Medication Orders Acetaminophen (Tylenol) 650 mg PO Q4H PRN PRN Reason: Pain (Mild 1-3)/fever Acetaminophen/Codeine Phosphate (Tylenol With Codeine No.3 300mg/30mg) tab PO Q4H PRN PRN Reason: Pain Albuterol/Ipratropium (Duoneb 3.0-0.5 Mg/3 Ml) 3 ml NEB Q4H PRN PRN Reason: Shortness Of Breath/wheezing Allopurinol (Zyloprim) 200 mg PO DAILY [facility] Aspirin (Halfprin) 81 mg PO DAILY [facility] Benzonatate (Tessalon Perles) 200 mg PO BID PRN PRN Reason: Cough Furosemide (Lasix) 60 mg PO DAILY [facility] Hydralazine HCl (Apresoline) 10 mg IVPUSH Q4H PRN PRN Reason: Hypertension Isosorbide Mononitrate (Imdur) 15 mg PO DAILY [facility] Lorazepam (Ativan) 2 mg IVPUSH Q4H PRN PRN Reason: Seizures Magnesium Sulfate (Pharmacy To Dose - Magnesium Replacement) 1 dose .XX ASDIRECTED [facility] Metoprolol Succinate (Toprol Xl) 50 mg PO DAILY [facility] Metoprolol Tartrate (Lopressor) 5 mg IVPUSH Q4H PRN PRN Reason: Tachycardia Non-Formulary Medication (Amlodipine Bes/Olmesartan Med [Arely 10-40 Mg]) 1 tab PO DAILY [facility] Non-Formulary Medication (Atorvastatin) 10 mg PO DAILY [facility] Non-Formulary Medication (Calcium Carbonate/Vitamin D3) 1 tab PO DAILY [facility] Non-Formulary Medication (Cranberry Fruit Concentrate [Cranberry]) 450 mg PO DAILY [facility] Non-Formulary Medication (Loratadine [Claritin]) 10 mg PO DAILY PRN PRN Reason: Allergies Non-Formulary Medication (Multivitamin [Multivitamins]) 1 tab PO DAILY [facility] Non-Formulary Medication (Rivaroxaban [Xarelto]) 20 mg PO DAILY [facility] Ondansetron HCl (Zofran Odt) mg PO Q8HR PRN PRN Reason: Vomiting Ondansetron HCl (Zofran) 4 mg IV Q6H PRN PRN Reason: Nausea/Vomiting Oxycodone/Acetaminophen (Percocet 325-5 Mg) 1 tab PO ASDIRECTED PRN PRN Reason: Pain Polyethylene Glycol (Miralax) 17 gm PO DAILY [facility] Potassium Chloride (Pharmacy To Dose - Potassium Replacement) 1 dose .XX ASDIRECTED [facility] Senna/Docusate Sodium (Senna Plus) tab PO BID PRN PRN Reason: Constipation Sodium Chloride (Saline Flush) 10 ml FLUSH ASDIRECTED PRN PRN Reason: Keep Vein Open Last Admin: 10/18/17 21:14 Dose: 10 ml Assessment/Plan Comment:: I/P: Acute: Influenza A -Symptoms started last week -Reportedly diagnosed with pneumonia then and given antibiotic with no relief -Cough, fever, weakness, SOB -Supportive care -Will hold tamiflu as symptoms started last week -Reviewed CXR with Dr. Sanderson - no definitive infiltrates; pending radiologist read -Fluids as ordered; caution due to hx/o heart failure -Tylenol for fever/pain Chronic: Impaired vision Macular degeneration A-fib in post-op Heart failure - home meds HTN - home meds HLD - home Asthma Hx/o DVT - home xarelto Lower extremity edema Constipation GERD Arthritis - home meds OA - home meds Osteoporosis Anemia Lymphoma successfully treated with chemotherapy Plan: Admit to medical floor on telemetry CM for discharge planning PT/OT Other orders as indicated above Routine AM labs Home medications as ordered DVT prophylaxis: Home xarelto PCP is Harmony Jordan at [facility] here in [place].
[2017-10-19] MEDS ORDERED: Sodium Chloride 0.9% 1,000 ML IV SCH (00:45)
[2017-10-19] MEDS: Benzonatate 100 MG Cap PO PRN ×2 (01:20→17:37)
--- NOTE | 2017-10-19 07:28 | CR ---
Chest: Two views of the chest are obtained. Comparison: Prior chest x-ray of 12/14/16. Heart is enlarged. Mild tortuosity of the thoracic aorta is seen. Lungs are hyperinflated compatible with emphysematous change. No acute parenchymal densities are appreciated. Diffuse degenerative spurring is noted within the spine with several levels of disc calcification being seen. Impression: 1. Multiple findings as noted above. Nothing acute is appreciated on two-view chest x-ray. Diagnostic code #2
[2017-10-19] MEDS ORDERED: Non-Formulary Medication 1 Each (Cranberry Fruit Concentrate [Cranberry] 450 MG) PO SCH (09:00)
[2017-10-19] MEDS ORDERED: Oseltamivir 30 MG Cap PO SCH (09:00)
[2017-10-19] MEDS ORDERED: Formoterol/Mometasone 200-5 MCG 8.8 GM Inhaler IH SCH (09:45)
[2017-10-19] MEDS: Furosemide 20 MG Tab PO SCH (09:45)
[2017-10-19] MEDS: Aspirin 81 MG Tab.EC PO SCH (09:45)
[2017-10-19] MEDS: Potassium Chloride 20 MEQ Tab.ER PO SCH ×2 (09:46→11:13)
[2017-10-19] MEDS: Isosorbide Mononitrate 30 MG Tab.ER PO SCH (09:46)
[2017-10-19] MEDS: Calcium Carbonate/Vitamin D3 1500 MG-200 Units Tab PO SCH (09:46)
[2017-10-19] MEDS: Simvastatin 10 MG Tab PO SCH (09:46)
[2017-10-19] MEDS: amLODIPine 10 MG Tab PO SCH (09:46)
[2017-10-19] MEDS: Metoprolol Succinate 50 MG Tab.ER PO SCH (09:47)
[2017-10-19] MEDS: Multivitamins,Therapeutic Tab PO SCH (09:47)
[2017-10-19] MEDS: Allopurinol 100 MG Tab PO SCH (09:47)
[2017-10-19] MEDS: Polyethylene Glycol 3350 Powder 17 GM Packet PO SCH (09:47)
[2017-10-19] MEDS ORDERED: Formoterol/Mometasone 200-5 MCG 8.8 GM Inhaler IH ONE (10:15)
--- NOTE | 2017-10-19 12:28 | PCM.PN ---
- General Info Date of Service: 10/19/17 Admission Dx/Problem (Free Text): Admission Diagnosis/Problem Admission Diagnosis/Problem Pneumonia Subjective Update: Follow Up Functional Status: Reports: Pain Controlled, Tolerating Diet, Ambulating, Urinating. Denies: New Symptoms - Review of Systems General: Reports: Fever, Fatigue. Denies: Weakness, Malaise, Chills HEENT: Reports: No Symptoms Pulmonary: Reports: Cough, Sputum. Denies: Shortness of Breath Cardiovascular: Denies: Chest Pain, Palpitations, Dyspnea on Exertion, Lightheadedness Gastrointestinal: Reports: Flatus. Denies: Abdominal Pain, Constipation, Decreased Appetite, Diarrhea, Nausea, Vomiting Genitourinary: Reports: No Symptoms Musculoskeletal: Reports: No Symptoms Skin: Denies: Cyanosis, Jaundice, Pallor, Diaphoresis, Rash Neurological: Denies: Confusion, Difficulty Walking, Weakness, Gait Disturbance Psychiatric: Denies: Depression, Anxiety, Agitation, Hallucinations Systems Review Comment:: No significant overnight or acute issues. She slept pretty good but she feels tired and achy. She is still coughing up white phlegm but not as much as it used to. She is afebrile w/o leukocytosis. She tells me, her of 89 years of age is also sick alone at the [facility]. - Patient Data Vitals - Most Recent: Last Vital Signs Temp 37.2 C 10/19/17 07:52 Pulse 76 10/19/17 09:47 Resp 18 10/19/17 07:52 BP 141/56 H 10/19/17 09:47 Pulse Ox 94 L 10/19/17 10:08 Weight - Most Recent: 75.325 kg I&O - Last 24 Hours: Intake & Output 10/18/17 10/19/17 10/19/17 22:59 06:59 14:59 Intake Total 607 360 Output Total 400 Balance 207 360 Lab Results Last 24 Hours: Laboratory Results - last 24 hr 10/18/17 10/19/17 10/19/17 Range/Units 23:51 00:19 06:45 WBC 10.67 H (3.98-10.04) K/mm3 RBC 4.42 (3.98-5.22) M/mm3 Hgb 12.9 (11.2-15.7) gm/L Hct 39.0 (34.1-44.9) % MCV 88.2 (79.4-94.8) fl MCH 29.2 (25.6-32.2) pg MCHC 33.1 (32.2-35.5) g/dl RDW Std Deviation 49.0 H (36.4-46.3) fL Plt Count 195 (182-369) K/mm3 MPV 10.6 (9.4-12.3) fl Neut % (Auto) 76.2 H (34.0-71.1) % Lymph % (Auto) 11.9 L (19.3-51.7) % [place] % (Auto) 11.4 (4.7-12.5) % Eos % (Auto) 0.3 L (0.7-5.8) Baso % (Auto) 0.2 (0.1-1.2) % Neut # (Auto) 8.13 H (1.56-6.13) K/mm3 Lymph # (Auto) 1.27 (1.18-3.74) K/mm3 [place] # (Auto) 1.22 H (0.24-0.36) K/mm3 Eos # (Auto) 0.03 L (0.04-0.36) K/mm3 Baso # (Auto) 0.02 (0.01-0.08) K/mm3 Sodium (136-145) mEq/L Potassium (3.5-5.1) mEq/L Chloride (98-107) mEq/L Carbon Dioxide (21-32) mEq/L Anion Gap (5-15) BUN (7-18) mg/dL Creatinine (0.55-1.02) mg/dL Est Cr Clr Drug Dosing mL/min Estimated GFR (MDRD) (>60) mL/min BUN/Creatinine Ratio (14-18) Glucose (83-115) mg/dL Calcium (8.5-10.1) mg/dL Magnesium (1.8-2.4) mg/dl NT-Pro-B Natriuret Pep (0-450) pg/mL Urine Color Yellow (Yellow) Urine Appearance Clear (Clear) Urine pH 6.5 (5.0-8.0) Ur Specific [place] 1.015 (1.005-1.030) Urine Protein 1+ H (Negative) Urine Glucose (UA) Negative (Negative) Urine Ketones Negative (Negative) Urine Occult Blood Negative (Negative) Urine Nitrite Negative (Negative) Urine Bilirubin Negative (Negative) Urine Urobilinogen 0.2 (0.2-1.0) Ur Leukocyte Esterase Negative (Negative) Urine RBC Not seen (0-5) /hpf Urine WBC 0-5 (0-5) /hpf Ur Epithelial Cells 0-5 (0-5) /hpf Urine Bacteria Not seen (FEW) /hpf Urine Mucus Not seen (FEW) /hpf MRSA (PCR) Negative 10/19/17 10/19/17 Range/Units 06:45 06:45 WBC (3.98-10.04) K/mm3 RBC (3.98-5.22) M/mm3 Hgb (11.2-15.7) gm/L Hct (34.1-44.9) % MCV (79.4-94.8) fl MCH (25.6-32.2) pg MCHC (32.2-35.5) g/dl RDW Std Deviation (36.4-46.3) fL Plt Count (182-369) K/mm3 MPV (9.4-12.3) fl Neut % (Auto) (34.0-71.1) % Lymph % (Auto) (19.3-51.7) % [place] % (Auto) (4.7-12.5) % Eos % (Auto) (0.7-5.8) Baso % (Auto) (0.1-1.2) % Neut # (Auto) (1.56-6.13) K/mm3 Lymph # (Auto) (1.18-3.74) K/mm3 [place] # (Auto) (0.24-0.36) K/mm3 Eos # (Auto) (0.04-0.36) K/mm3 Baso # (Auto) (0.01-0.08) K/mm3 Sodium 143 (136-145) mEq/L Potassium 3.7 (3.5-5.1) mEq/L Chloride 106 (98-107) mEq/L Carbon Dioxide 28 (21-32) mEq/L Anion Gap 12.7 (5-15) BUN 22 H (7-18) mg/dL Creatinine 1.2 H (0.55-1.02) mg/dL Est Cr Clr Drug Dosing 32.09 mL/min Estimated GFR (MDRD) 43 (>60) mL/min BUN/Creatinine Ratio 18.3 H (14-18) Glucose 141 H (83-115) mg/dL Calcium 8.6 (8.5-10.1) mg/dL Magnesium 2.0 (1.8-2.4) mg/dl NT-Pro-B Natriuret Pep 1156 H (0-450) pg/mL Urine Color (Yellow) Urine Appearance (Clear) Urine pH (5.0-8.0) Ur Specific [place] (1.005-1.030) Urine Protein (Negative) Urine Glucose (UA) (Negative) Urine Ketones (Negative) Urine Occult Blood (Negative) Urine Nitrite (Negative) Urine Bilirubin (Negative) Urine Urobilinogen (0.2-1.0) Ur Leukocyte Esterase (Negative) Urine RBC (0-5) /hpf Urine WBC (0-5) /hpf Ur Epithelial Cells (0-5) /hpf Urine Bacteria (FEW) /hpf Urine Mucus (FEW) /hpf MRSA (PCR) Med Orders - Current: Current Medications Acetaminophen (Tylenol) 650 mg PO Q4H PRN PRN Reason: Pain (Mild 1-3)/fever Albuterol/Ipratropium (Duoneb 3.0-0.5 Mg/3 Ml) 3 ml NEB Q4H PRN PRN Reason: Shortness Of Breath/wheezing Allopurinol (Zyloprim) 200 mg PO DAILY [facility] Last Admin: 10/19/17 09:47 Dose: 200 mg Amlodipine Besylate (Norvasc) 10 mg PO DAILY [facility] Last Admin: 10/19/17 09:46 Dose: 10 mg Aspirin (Halfprin) 81 mg PO DAILY [facility] Last Admin: 10/19/17 09:45 Dose: 81 mg Benzonatate (Tessalon Perles) 200 mg PO BID PRN PRN Reason: Cough Last Admin: 10/19/17 01:20 Dose: 200 mg Calcium Carbonate (Calcium Carbonate/Vitamin D 1500 Mg-200 Unit) 1 tab PO DAILY [facility] Last Admin: 10/19/17 09:46 Dose: 1 tab Furosemide (Lasix) 60 mg PO DAILY [facility] Last Admin: 10/19/17 09:45 Dose: 60 mg Hydralazine HCl (Apresoline) 10 mg IVPUSH Q4H PRN PRN Reason: Hypertension Last Admin: 10/19/17 01:21 Dose: 10 mg Sodium Chloride (Normal Saline) 1,000 mls @ 75 mls/hr IV ASDIRECTED [facility] Stop: 10/19/17 14:04 Last Admin: 10/19/17 01:21 Dose: 75 mls/hr Isosorbide Mononitrate (Imdur) 15 mg PO DAILY [facility] Last Admin: 10/19/17 09:46 Dose: 15 mg Loratadine (Claritin) 10 mg PO DAILY PRN PRN Reason: Allergies Lorazepam (Ativan) 2 mg IVPUSH Q4H PRN PRN Reason: Seizures Magnesium Sulfate (Pharmacy To Dose - Magnesium Replacement) 1 dose .XX ASDIRECTED [facility] Metoprolol Succinate (Toprol Xl) 50 mg PO DAILY [facility] Last Admin: 10/19/17 09:47 Dose: 50 mg Metoprolol Tartrate (Lopressor) 5 mg IVPUSH Q4H PRN PRN Reason: Tachycardia Mometasone Furoate/Formoterol Fumar (Dulera 200-5 Mcg) 2 puff IH BID [facility] Multivitamins (Thera) 1 each PO DAILY [facility] Last Admin: 10/19/17 09:47 Dose: 1 each Ondansetron HCl (Zofran Odt) 8 mg PO Q8HR PRN PRN Reason: Vomiting Ondansetron HCl (Zofran) 4 mg IV Q6H PRN PRN Reason: Nausea/Vomiting Oxycodone/Acetaminophen (Percocet 325-5 Mg) 1 tab PO Q4H PRN PRN Reason: Pain Last Admin: 10/19/17 01:20 Dose: 1 tab Polyethylene Glycol (Miralax) 17 gm PO DAILY [facility] Last Admin: 10/19/17 09:47 Dose: 17 gm Potassium Chloride (Pharmacy To Dose - Potassium Replacement) 1 dose .XX ASDIRECTED [facility] Rivaroxaban (Xarelto) 20 mg PO DAILY@1700 [facility] Senna/Docusate Sodium (Senna Plus) 2 tab PO BID PRN PRN Reason: Constipation Simvastatin (Zocor) 10 mg PO DAILY [facility] Last Admin: 10/19/17 09:46 Dose: 10 mg Sodium Chloride (Saline Flush) 10 ml FLUSH ASDIRECTED PRN PRN Reason: Keep Vein Open Last Admin: 10/18/17 21:14 Dose: 10 ml Discontinued Medications Acetaminophen/Codeine Phosphate (Tylenol With Codeine No.3 300mg/30mg) 1 tab PO Q4H PRN PRN Reason: Pain Albuterol/Ipratropium (Duoneb 3.0-0.5 Mg/3 Ml) 3 ml NEB ONETIME ONE Stop: 10/18/17 20:26 Last Admin: 10/18/17 20:59 Dose: 3 ml Ceftriaxone Sodium 2 gm/ (Sodium Chloride) 100 mls @ 200 mls/hr IV ONETIME ONE Stop: 10/18/17 20:54 Last Admin: 10/18/17 21:14 Dose: 200 mls/hr Mometasone Furoate/Formoterol Fumar (Dulera 200-5 Mcg) 2 puff IH BID [facility] Mometasone Furoate/Formoterol Fumar (Dulera 200-5 Mcg) 2 puff IH ONETIME ONE Stop: 10/19/17 10:16 Last Admin: 10/19/17 10:08 Dose: 2 puff Non-Formulary Medication (Cranberry Fruit Concentrate [Cranberry]) 450 mg PO DAILY [facility] Oseltamivir Phosphate (Tamiflu) 75 mg PO ONETIME ONE Stop: 10/18/17 22:22 Last Admin: 10/18/17 22:29 Dose: 75 mg Oseltamivir Phosphate (Tamiflu) 30 mg PO BID [facility] Potassium Chloride (Klor-Con M20) 40 meq PO Q4H [facility] Stop: 10/19/17 12:01 Last Admin: 10/19/17 11:13 Dose: 40 meq - Exam Quality Assessment: No: Supplemental Oxygen General: Alert, Oriented, Cooperative, No Acute Distress HEENT: Pupils Equal, Pupils Reactive, EOMI, Mucous Membr. Moist/[place] Neck: Supple, Trachea Midline, No JVD Lungs: Normal Respiratory Effort, Decreased Breath Sounds, Rhonchi, Other ( congestion) Cardiovascular: Regular Rate, Regular Rhythm GI/Abdominal Exam: Normal Bowel Sounds, Soft, Non-Tender, No Organomegaly, No Distention, No Abnormal Bruit (Female) Exam: Deferred Back Exam: Normal Inspection, Decreased Range of Motion Extremities: Normal Inspection, Normal Range of Motion, Non-Tender, No Pedal Edema, Normal Capillary Refill Peripheral Pulses: 2+: Dorsalis Pedis (L), Dorsalis Pedis (R) Skin: Warm, Dry, Intact Neurological: No New Focal Deficit Psy/Mental Status: Alert, Normal Affect, Normal Mood - Problem List Review Problem List Initiated/Reviewed/Updated: Yes - My Orders Last 24 Hours: My Active Orders 10/19/17 00:04 Acetaminophen/oxyCODONE [Percocet 325-5 MG] 1 tab PO Q4H PRN Docusate Sodium/Sennosides [Senna Plus] 2 tab PO BID PRN Loratadine [Claritin] 10 mg PO DAILY PRN Ondansetron [Zofran ODT] 8 mg PO Q8HR PRN 10/19/17 00:09 LORazepam [Ativan] 2 mg IVPUSH Q4H PRN Metoprolol Tartrate [Lopressor] 5 mg IVPUSH Q4H PRN hydrALAZINE [Apresoline] 10 mg IVPUSH Q4H PRN 10/19/17 00:15 Magnesium Rep Pharmacy to Dose [Pharmacy to Dose - Magnesium Replacement] 1 dose .XX ASDIRECTED Potassium Rep Pharmacy to Dose [Pharmacy to Dose - Potassium Replacement] 1 dose .XX ASDIRECTED 10/19/17 01:39 Resuscitation Status Routine 10/19/17 09:00 Allopurinol [Zyloprim] 200 mg PO DAILY Aspirin [Halfprin] 81 mg PO DAILY Calcium Carbonate/Vitamin D3 [Calcium Carbonate/Vitamin D 1500 MG-200 Unit] 1 tab PO DAILY Furosemide [Lasix] 60 mg PO DAILY Isosorbide Mononitrate [Imdur] 15 mg PO DAILY Metoprolol Succinate [Toprol XL] 50 mg PO DAILY Multivitamins,Therapeutic [Thera] 1 each PO DAILY Polyethylene Glycol 3350 [MiraLAX] 17 gm PO DAILY Simvastatin [Zocor] 10 mg PO DAILY amLODIPine [Norvasc] 10 mg PO DAILY 10/19/17 09:45 Mometasone/Formoterol [Dulera 200-5 MCG] 2 puff IH BID 10/19/17 17:00 Rivaroxaban [Xarelto] 20 mg PO DAILY@1700 - Plan Plan:: I/P: Acute: Influenza A -Symptoms started last week -Reportedly diagnosed with pneumonia then and given antibiotic with no relief -Cough, fever, weakness, SOB -Continue Supportive care -Received Tamiflu x1 dose in ED; Symptoms started last week--> outside the 48hr window for recommended treatment -Reviewed CXR with Dr. Sanderson - no definitive infiltrates -Fluids as ordered; caution due to hx/o heart failure -Tylenol for fever/pain Bronchitis -Still cough up white phlegm but better prior to admission -She feels congested -Will add dextromethorphan on her guaifenesin regimen -FV as directed Chronic: Impaired vision Macular degeneration A-fib in post-op Heart failure - home meds HTN - home meds HLD - home Asthma Hx/o DVT - home xarelto Lower extremity edema Constipation GERD Arthritis - home meds OA - home meds Osteoporosis Anemia Lymphoma successfully treated with chemotherapy Plan: She is clinically stable Continue current treatment Continue RT/PT/OT MRSA screening negative DVT prophylaxis: Home xarelto Activate [facility] for Nursing PT/OT after discharge CM/SW for discharge planning CM to call Chen Diego to make sure her is okay or seen at the clinic Other orders as indicated above PCP is Harmony Jordan at [facility] here in [place]
[2017-10-19] MEDS: Rivaroxaban 10 MG Tab PO SCH ×2 (17:37→17:39)
[2017-10-19] MEDS ORDERED: Azithromycin 500 MG in Sodium Chloride 0.9% 250 ML IV ONE (20:03)
[2017-10-19] MEDS: Formoterol/Mometasone 200-5 MCG 8.8 GM Inhaler IH SCH (20:17)
[2017-10-19] MEDS: Azithromycin 500 MG in Sodium Chloride 0.9% 250 ML IV SCH (21:31)
[2017-10-20] MEDS: Benzonatate 100 MG Cap PO PRN ×2 (05:23→18:12)
[2017-10-20] MEDS: Formoterol/Mometasone 200-5 MCG 8.8 GM Inhaler IH SCH ×2 (08:34→23:10)
[2017-10-20] MEDS ORDERED: BREO ELLIPTA INH SCH (09:00)
[2017-10-20] MEDS: Azithromycin 500 MG in Sodium Chloride 0.9% 250 ML IV SCH (09:05)
[2017-10-20] MEDS: Enoxaparin 40 MG/0.4 ML Syringe SUBCUT SCH (09:11)
[2017-10-20] MEDS: Furosemide 20 MG Tab PO SCH (09:12)
[2017-10-20] MEDS: Allopurinol 100 MG Tab PO SCH (09:12)
[2017-10-20] MEDS: Polyethylene Glycol 3350 Powder 17 GM Packet PO SCH (09:12)
[2017-10-20] MEDS: amLODIPine 10 MG Tab PO SCH (09:13)
[2017-10-20] MEDS: Simvastatin 10 MG Tab PO SCH (09:13)
[2017-10-20] MEDS: Multivitamins,Therapeutic Tab PO SCH (09:14)
[2017-10-20] MEDS: Isosorbide Mononitrate 30 MG Tab.ER PO SCH (09:14)
[2017-10-20] MEDS: Calcium Carbonate/Vitamin D3 1500 MG-200 Units Tab PO SCH (09:14)
[2017-10-20] MEDS: Aspirin 81 MG Tab.EC PO SCH (09:15)
[2017-10-20] MEDS: Metoprolol Succinate 50 MG Tab.ER PO SCH (09:15)
--- NOTE | 2017-10-20 11:30 | PCM.PN ---
- General Info Date of Service: 10/20/17 Admission Dx/Problem (Free Text): Admission Diagnosis/Problem Admission Diagnosis/Problem Pneumonia Subjective Update: In to see Delilah today. She is sitting in her chair. She just finished with PT. Reports her symptoms are improving. She reports her was placed on Tamiflu as he had similar symptoms, however his started on the day she came to the ER. She reports continued weakness. She's not had a bowel movement yet but does not feel constipated. She is just starting to eat. Overall she is doing fairly well. Functional Status: Reports: Pain Controlled, Tolerating Diet, Ambulating, Urinating, Incentive Spirometry. Denies: New Symptoms - Review of Systems General: Reports: Weakness (improving ) HEENT: Reports: No Symptoms Pulmonary: Reports: Shortness of Breath (improving ), Cough Cardiovascular: Reports: Dyspnea on Exertion (improving ) Gastrointestinal: Reports: No Symptoms Genitourinary: Reports: No Symptoms Musculoskeletal: Reports: No Symptoms Skin: Reports: No Symptoms Neurological: Reports: No Symptoms Psychiatric: Reports: No Symptoms - Patient Data Vitals - Most Recent: Last Vital Signs Temp 98.8 F 10/20/17 07:39 Pulse 82 10/20/17 09:15 Resp 18 10/20/17 07:39 BP 149/45 H 10/20/17 09:15 Pulse Ox 94 L 10/20/17 08:34 Weight - Most Recent: 165 lb 8 oz I&O - Last 24 Hours: Intake & Output 10/19/17 10/20/17 10/20/17 22:59 06:59 14:59 Intake Total 1463 500 300 Output Total 1200 550 Balance 263 -50 300 Lab Results Last 24 Hours: Laboratory Results - last 24 hr 10/20/17 10/20/17 Range/Units 06:10 06:10 WBC 6.03 (3.98-10.04) K/mm3 RBC 4.48 (3.98-5.22) M/mm3 Hgb 12.8 (11.2-15.7) gm/L Hct 39.9 (34.1-44.9) % MCV 89.1 (79.4-94.8) fl MCH 28.6 (25.6-32.2) pg MCHC 32.1 L (32.2-35.5) g/dl RDW Std Deviation 51.5 H (36.4-46.3) fL Plt Count 180 L (182-369) K/mm3 MPV 10.3 (9.4-12.3) fl Neut % (Auto) 48.8 (34.0-71.1) % Lymph % (Auto) 29.4 (19.3-51.7) % [place] % (Auto) 20.2 H (4.7-12.5) % Eos % (Auto) 1.3 (0.7-5.8) Baso % (Auto) 0.3 (0.1-1.2) % Neut # (Auto) 2.94 (1.56-6.13) K/mm3 Lymph # (Auto) 1.77 (1.18-3.74) K/mm3 [place] # (Auto) 1.22 H (0.24-0.36) K/mm3 Eos # (Auto) 0.08 (0.04-0.36) K/mm3 Baso # (Auto) 0.02 (0.01-0.08) K/mm3 Manual Slide Review Abnormal smear Sodium 142 (136-145) mEq/L Potassium 4.3 (3.5-5.1) mEq/L Chloride 106 (98-107) mEq/L Carbon Dioxide 27 (21-32) mEq/L Anion Gap 13.3 (5-15) BUN 19 H (7-18) mg/dL Creatinine 1.1 H (0.55-1.02) mg/dL Est Cr Clr Drug Dosing 35.00 mL/min Estimated GFR (MDRD) 47 (>60) mL/min BUN/Creatinine Ratio 17.3 (14-18) Glucose 113 (83-115) mg/dL Calcium 9.4 (8.5-10.1) mg/dL Magnesium 2.2 (1.8-2.4) mg/dl Med Orders - Current: Current Medications Acetaminophen (Tylenol) 650 mg PO Q4H PRN PRN Reason: Pain (Mild 1-3)/fever Albuterol/Ipratropium (Duoneb 3.0-0.5 Mg/3 Ml) 3 ml NEB Q4H PRN PRN Reason: Shortness Of Breath/wheezing Last Admin: 10/19/17 20:23 Dose: 3 ml Allopurinol (Zyloprim) 200 mg PO DAILY [facility] Last Admin: 10/20/17 09:12 Dose: 200 mg Amlodipine Besylate (Norvasc) 10 mg PO DAILY [facility] Last Admin: 10/20/17 09:13 Dose: 10 mg Aspirin (Halfprin) 81 mg PO DAILY [facility] Last Admin: 10/20/17 09:15 Dose: 81 mg Benzonatate (Tessalon Perles) 200 mg PO BID PRN PRN Reason: Cough Last Admin: 10/20/17 05:23 Dose: 200 mg Calcium Carbonate (Calcium Carbonate/Vitamin D 1500 Mg-200 Unit) 1 tab PO DAILY [facility] Last Admin: 10/20/17 09:14 Dose: 1 tab Enoxaparin Sodium (Lovenox) 40 mg SUBCUT DAILY [facility] Last Admin: 10/20/17 09:11 Dose: 40 mg Furosemide (Lasix) 60 mg PO DAILY [facility] Last Admin: 10/20/17 09:12 Dose: 60 mg Guaifenesin/Phenylephrine HCl (Robitussin Dm) 5 ml PO Q4H PRN PRN Reason: Cough Hydralazine HCl (Apresoline) 10 mg IVPUSH Q4H PRN PRN Reason: Hypertension Last Admin: 10/19/17 01:21 Dose: 10 mg Azithromycin 500 mg/ Sodium (Chloride) 250 mls @ 250 mls/hr IV Q24H [facility] Last Admin: 10/20/17 09:05 Dose: 250 mls/hr Isosorbide Mononitrate (Imdur) 15 mg PO DAILY [facility] Last Admin: 10/20/17 09:14 Dose: 15 mg Loratadine (Claritin) 10 mg PO DAILY PRN PRN Reason: Allergies Lorazepam (Ativan) 2 mg IVPUSH Q4H PRN PRN Reason: Seizures Magnesium Sulfate (Pharmacy To Dose - Magnesium Replacement) 1 dose .XX ASDIRECTED [facility] Metoprolol Succinate (Toprol Xl) 50 mg PO DAILY [facility] Last Admin: 10/20/17 09:15 Dose: 50 mg Metoprolol Tartrate (Lopressor) 5 mg IVPUSH Q4H PRN PRN Reason: Tachycardia Mometasone Furoate/Formoterol Fumar (Dulera 200-5 Mcg) 2 puff IH BID [facility] Last Admin: 10/20/17 08:34 Dose: 2 puff Multivitamins (Thera) 1 each PO DAILY [facility] Last Admin: 10/20/17 09:14 Dose: 1 each Ondansetron HCl (Zofran Odt) 8 mg PO Q8HR PRN PRN Reason: Vomiting Ondansetron HCl (Zofran) 4 mg IV Q6H PRN PRN Reason: Nausea/Vomiting Oxycodone/Acetaminophen (Percocet 325-5 Mg) 1 tab PO Q4H PRN PRN Reason: Pain Last Admin: 10/19/17 01:20 Dose: 1 tab Polyethylene Glycol (Miralax) 17 gm PO DAILY [facility] Last Admin: 10/20/17 09:12 Dose: 17 gm Potassium Chloride (Pharmacy To Dose - Potassium Replacement) 1 dose .XX ASDIRECTED [facility] Senna/Docusate Sodium (Senna Plus) 2 tab PO BID PRN PRN Reason: Constipation Simvastatin (Zocor) 10 mg PO DAILY [facility] Last Admin: 10/20/17 09:13 Dose: 10 mg Sodium Chloride (Saline Flush) 10 ml FLUSH ASDIRECTED PRN PRN Reason: Keep Vein Open Last Admin: 10/18/17 21:14 Dose: 10 ml Discontinued Medications Acetaminophen/Codeine Phosphate (Tylenol With Codeine No.3 300mg/30mg) 1 tab PO Q4H PRN PRN Reason: Pain Albuterol/Ipratropium (Duoneb 3.0-0.5 Mg/3 Ml) 3 ml NEB ONETIME ONE Stop: 10/18/17 20:26 Last Admin: 10/18/17 20:59 Dose: 3 ml Ceftriaxone Sodium 2 gm/ (Sodium Chloride) 100 mls @ 200 mls/hr IV ONETIME ONE Stop: 10/18/17 20:54 Last Admin: 10/18/17 21:14 Dose: 200 mls/hr Sodium Chloride (Normal Saline) 1,000 mls @ 75 mls/hr IV ASDIRECTED [facility] Stop: 10/19/17 14:04 Last Admin: 10/19/17 01:21 Dose: 75 mls/hr Azithromycin 500 mg/ Sodium (Chloride) 250 mls @ 250 mls/hr IV ONETIME ONE Stop: 10/19/17 21:02 Last Admin: 10/19/17 21:32 Dose: 250 mls/hr Mometasone Furoate/Formoterol Fumar (Dulera 200-5 Mcg) 2 puff IH BID [facility] Mometasone Furoate/Formoterol Fumar (Dulera 200-5 Mcg) 2 puff IH ONETIME ONE Stop: 10/19/17 10:16 Last Admin: 10/19/17 10:08 Dose: 2 puff Non-Formulary Medication (Cranberry Fruit Concentrate [Cranberry]) 450 mg PO DAILY [facility] Breo Ellipta 200-25 (Mcg Inh 1 Puff) 0 puff INH DAILY [facility] Last Admin: 10/20/17 10:03 Dose: Not Given Oseltamivir Phosphate (Tamiflu) 75 mg PO ONETIME ONE Stop: 10/18/17 22:22 Last Admin: 10/18/17 22:29 Dose: 75 mg Oseltamivir Phosphate (Tamiflu) 30 mg PO BID [facility] Potassium Chloride (Klor-Con M20) 40 meq PO Q4H [facility] Stop: 10/19/17 12:01 Last Admin: 10/19/17 11:13 Dose: 40 meq Rivaroxaban (Xarelto) 20 mg PO DAILY@1700 [facility] Last Admin: 10/19/17 17:39 Dose: Not Given - Exam Quality Assessment: DVT Prophylaxis General: Alert, Oriented, Cooperative, No Acute Distress HEENT: Pupils Equal, Pupils Reactive, EOMI, Mucous Membr. Moist/[place] Neck: Supple, Trachea Midline, No JVD Lungs: Normal Respiratory Effort, Decreased Breath Sounds, Rhonchi (mild ), Wheezing (mild) Cardiovascular: Regular Rate, Regular Rhythm GI/Abdominal Exam: Normal Bowel Sounds, Soft, Non-Tender, No Organomegaly, No Distention, No Abnormal Bruit, No Mass, Pelvis Stable (Female) Exam: Deferred Back Exam: Normal Inspection, Full Range of Motion Extremities: Normal Inspection, Normal Range of Motion, Non-Tender, No Pedal Edema, Normal Capillary Refill Peripheral Pulses: 2+: Radial (L), Radial (R), Dorsalis Pedis (L), Dorsalis Pedis (R) Skin: Warm, Dry, Intact Neurological: No New Focal Deficit Psy/Mental Status: Alert, Normal Affect, Normal Mood - Problem List & Annotations (1) Influenza A SNOMED Code(s): 335800787 Code(s): J10.1 - FLU DUE TO OTH IDENT INFLUENZA VIRUS W OTH RESP MANIFEST Status: Acute Priority: High Current Visit: Yes (2) Macular degeneration SNOMED Code(s): 931232562 Code(s): H35.30 - UNSPECIFIED MACULAR DEGENERATION Status: Chronic Priority: Low Current Visit: No Qualifiers: Macular degeneration type: unspecified type Eye laterality: unspecified Qualified Code(s): H35.30 - Unspecified macular degeneration (3) Heart failure SNOMED Code(s): 83080718 Code(s): I50.9 - HEART FAILURE, UNSPECIFIED Status: Chronic Priority: Low Current Visit: No Qualifiers: Heart failure type: unspecified Heart failure chronicity: unspecified Qualified Code(s): I50.9 - Heart failure, unspecified (4) HTN (hypertension) SNOMED Code(s): 62474383 Code(s): I10 - ESSENTIAL (PRIMARY) HYPERTENSION Status: Acute Priority: Medium Current Visit: Yes Qualifiers: Hypertension type: unspecified Qualified Code(s): I10 - Essential (primary ) hypertension (5) Lower extremity edema SNOMED Code(s): 623445220 Code(s): R60.0 - LOCALIZED EDEMA Status: Chronic Priority: Low Current Visit: Yes (6) History of deep venous thrombosis or pulmonary embolus SNOMED Code(s): 170195922 Code(s): QCW0272 - Status: Chronic Priority: Low Current Visit: No (7) Asthma SNOMED Code(s): 183183042 Code(s): J45.909 - UNSPECIFIED ASTHMA, UNCOMPLICATED Status: Chronic Priority: Low Current Visit: No Qualifiers: Asthma severity: unspecified severity Asthma persistence: unspecified Asthma complication type: unspecified Qualified Code(s): J45.909 - Unspecified asthma, uncomplicated (8) GERD (gastroesophageal reflux disease) SNOMED Code(s): 385318672 Code(s): K21.9 - GASTRO-ESOPHAGEAL REFLUX DISEASE WITHOUT ESOPHAGITIS Status: Chronic Priority: Low Current Visit: No Qualifiers: Esophagitis presence: esophagitis presence not specified Qualified Code(s) : K21.9 - Gastro-esophageal reflux disease without esophagitis (9) Arthritis SNOMED Code(s): 0811016 Code(s): M19.90 - UNSPECIFIED OSTEOARTHRITIS, UNSPECIFIED SITE Status: Chronic Priority: Low Current Visit: No (10) Osteoarthritis SNOMED Code(s): 115943832 Code(s): M19.90 - UNSPECIFIED OSTEOARTHRITIS, UNSPECIFIED SITE Status: Chronic Priority: Low Current Visit: No Qualifiers: Osteoarthritis location: unspecified site Osteoarthritis type: primary Qualified Code(s): M19.91 - Primary osteoarthritis, unspecified site (11) Age related osteoporosis SNOMED Code(s): 600487214 Code(s): M81.0 - AGE-RELATED OSTEOPOROSIS W/O CURRENT PATHOLOGICAL FRACTURE Status: Chronic Priority: Low Current Visit: No Qualifiers: Presence of current pathological fracture: unspecified Qualified Code(s): M81.0 - Age-related osteoporosis without current pathological fracture (12) Lymphoma SNOMED Code(s): 538684317 Code(s): C85.90 - NON-HODGKIN LYMPHOMA, UNSPECIFIED, UNSPECIFIED SITE Status: Chronic Priority: Low Current Visit: No Qualifiers: Lymphoma type: unspecified type Lymphoma site: unspecified region Qualified Code(s): C85.90 - Non-Hodgkin lymphoma, unspecified, unspecified site - Problem List Review Problem List Initiated/Reviewed/Updated: Yes - My Orders Last 24 Hours: My Active Orders 10/20/17 09:00 Enoxaparin [Lovenox] 40 mg SUBCUT DAILY 10/21/17 05:11 BASIC METABOLIC PANEL,BMP [CHEM] AM CBC WITH AUTO DIFF [HEME] AM MAGNESIUM [CHEM] AM 10/22/17 05:11 BASIC METABOLIC PANEL,BMP [CHEM] AM CBC WITH AUTO DIFF [HEME] AM MAGNESIUM [CHEM] AM - Plan Plan:: I/P: Acute: Influenza A -Symptoms started last week -Reportedly diagnosed with pneumonia then and given antibiotic with no relief -Cough, fever, weakness, SOB -Continue Supportive care -Received Tamiflu x1 dose in ED; Symptoms started last week--> outside the 48hr window for recommended treatment -Reviewed CXR with Dr. Sanderson - no definitive infiltrates -Fluids as ordered; caution due to hx/o heart failure -Tylenol for fever/pain Bronchitis -Still cough up white phlegm but better prior to admission -She feels congested -Will add dextromethorphan on her guaifenesin regimen -FV as directed Chronic: Impaired vision Macular degeneration A-fib in post-op Heart failure - home meds HTN - home meds HLD - home Asthma Hx/o DVT - home xarelto Lower extremity edema Constipation GERD Arthritis - home meds OA - home meds Osteoporosis Anemia Lymphoma successfully treated with chemotherapy Plan: She is clinically stable Continue current treatment Continue RT/PT/OT MRSA screening negative DVT prophylaxis: Home xarelto Activate [facility] for Nursing PT/OT after discharge CM/SW for discharge planning CM to call Chen Diego to make sure her is okay or seen at the clinic Other orders as indicated above PCP is Harmony Jordan at [facility] here in [place] Likely discharge tomorrow.
[2017-10-20] MEDS: guaiFENesin/Dextromethorphan 100-10 MG/5 ML Soln 5 ML Cup PO PRN (21:49)
[2017-10-21] MEDS: Formoterol/Mometasone 200-5 MCG 8.8 GM Inhaler IH SCH (08:12)
[2017-10-21] MEDS: Azithromycin 500 MG in Sodium Chloride 0.9% 250 ML IV SCH (08:23)
[2017-10-21] MEDS: Metoprolol Succinate 50 MG Tab.ER PO SCH (08:24)
[2017-10-21] MEDS: Calcium Carbonate/Vitamin D3 1500 MG-200 Units Tab PO SCH (08:25)
[2017-10-21] MEDS: Simvastatin 10 MG Tab PO SCH (08:25)
[2017-10-21] MEDS: Multivitamins,Therapeutic Tab PO SCH (08:25)
[2017-10-21] MEDS: Furosemide 20 MG Tab PO SCH (08:26)
[2017-10-21] MEDS: Aspirin 81 MG Tab.EC PO SCH (08:26)
[2017-10-21] MEDS: amLODIPine 10 MG Tab PO SCH (08:26)
[2017-10-21] MEDS: Allopurinol 100 MG Tab PO SCH (08:27)
[2017-10-21] MEDS: Isosorbide Mononitrate 30 MG Tab.ER PO SCH (08:27)
[2017-10-21] MEDS: Polyethylene Glycol 3350 Powder 17 GM Packet PO SCH (08:29)
[2017-10-21] MEDS: Enoxaparin 40 MG/0.4 ML Syringe SUBCUT SCH (08:29)
--- NOTE | 2017-10-21 09:31 | PCM.PN ---
- General Info Date of Service: 10/21/17 Admission Dx/Problem (Free Text): Admission Diagnosis/Problem Admission Diagnosis/Problem Pneumonia - Patient Data Vitals - Most Recent: Last Vital Signs Temp 98.1 F 10/21/17 08:12 Pulse 80 10/21/17 08:24 Resp 17 10/21/17 05:02 BP 131/88 10/21/17 08:27 Pulse Ox 93 L 10/21/17 08:13 Weight - Most Recent: 164 lb 8 oz I&O - Last 24 Hours: Intake & Output 10/20/17 10/21/17 10/21/17 22:59 06:59 14:59 Intake Total 860 375 Output Total 750 850 Balance 110 -475 Lab Results Last 24 Hours: Laboratory Results - last 24 hr 10/21/17 10/21/17 Range/Units 05:51 05:51 WBC 6.24 (3.98-10.04) K/mm3 RBC 4.44 (3.98-5.22) M/mm3 Hgb 12.7 (11.2-15.7) gm/L Hct 39.4 (34.1-44.9) % MCV 88.7 (79.4-94.8) fl MCH 28.6 (25.6-32.2) pg MCHC 32.2 (32.2-35.5) g/dl RDW Std Deviation 50.5 H (36.4-46.3) fL Plt Count 189 (182-369) K/mm3 MPV 10.4 (9.4-12.3) fl Neut % (Auto) 50.7 (34.0-71.1) % Lymph % (Auto) 31.4 (19.3-51.7) % [place] % (Auto) 14.4 H (4.7-12.5) % Eos % (Auto) 3.0 (0.7-5.8) Baso % (Auto) 0.5 (0.1-1.2) % Neut # (Auto) 3.16 (1.56-6.13) K/mm3 Lymph # (Auto) 1.96 (1.18-3.74) K/mm3 [place] # (Auto) 0.90 H (0.24-0.36) K/mm3 Eos # (Auto) 0.19 (0.04-0.36) K/mm3 Baso # (Auto) 0.03 (0.01-0.08) K/mm3 Sodium 140 (136-145) mEq/L Potassium 3.9 (3.5-5.1) mEq/L Chloride 105 (98-107) mEq/L Carbon Dioxide 28 (21-32) mEq/L Anion Gap 10.9 (5-15) BUN 22 H (7-18) mg/dL Creatinine 1.1 H (0.55-1.02) mg/dL Est Cr Clr Drug Dosing 35.00 mL/min Estimated GFR (MDRD) 47 (>60) mL/min BUN/Creatinine Ratio 20.0 H (14-18) Glucose 101 (83-115) mg/dL Calcium 9.1 (8.5-10.1) mg/dL Magnesium 2.1 (1.8-2.4) mg/dl [place] Results Last 24 Hours: Microbiology 10/19/17 21:30 Respiratory Virus Panel (PCR) (NADER) - Final Nasopharyngeal Swab Med Orders - Current: Current Medications Acetaminophen (Tylenol) 650 mg PO Q4H PRN PRN Reason: Pain (Mild 1-3)/fever Albuterol/Ipratropium (Duoneb 3.0-0.5 Mg/3 Ml) 3 ml NEB Q4H PRN PRN Reason: Shortness Of Breath/wheezing Last Admin: 10/19/17 20:23 Dose: 3 ml Allopurinol (Zyloprim) 200 mg PO DAILY [facility] Last Admin: 10/21/17 08:27 Dose: 200 mg Amlodipine Besylate (Norvasc) 10 mg PO DAILY [facility] Last Admin: 10/21/17 08:26 Dose: 10 mg Aspirin (Halfprin) 81 mg PO DAILY [facility] Last Admin: 10/21/17 08:26 Dose: 81 mg Benzonatate (Tessalon Perles) 200 mg PO BID PRN PRN Reason: Cough Last Admin: 10/20/17 18:12 Dose: 200 mg Calcium Carbonate (Calcium Carbonate/Vitamin D 1500 Mg-200 Unit) 1 tab PO DAILY [facility] Last Admin: 10/21/17 08:25 Dose: 1 tab Enoxaparin Sodium (Lovenox) 40 mg SUBCUT DAILY [facility] Last Admin: 10/21/17 08:29 Dose: 40 mg Furosemide (Lasix) 60 mg PO DAILY [facility] Last Admin: 10/21/17 08:26 Dose: 60 mg Guaifenesin/Phenylephrine HCl (Robitussin Dm) 5 ml PO Q4H PRN PRN Reason: Cough Last Admin: 10/20/17 21:49 Dose: 5 ml Hydralazine HCl (Apresoline) 10 mg IVPUSH Q4H PRN PRN Reason: Hypertension Last Admin: 10/19/17 01:21 Dose: 10 mg Azithromycin 500 mg/ Sodium (Chloride) 250 mls @ 250 mls/hr IV Q24H [facility] Last Admin: 10/21/17 08:23 Dose: 250 mls/hr Isosorbide Mononitrate (Imdur) 15 mg PO DAILY [facility] Last Admin: 10/21/17 08:27 Dose: 15 mg Loratadine (Claritin) 10 mg PO DAILY PRN PRN Reason: Allergies Lorazepam (Ativan) 2 mg IVPUSH Q4H PRN PRN Reason: Seizures Magnesium Sulfate (Pharmacy To Dose - Magnesium Replacement) 1 dose .XX ASDIRECTED [facility] Metoprolol Succinate (Toprol Xl) 50 mg PO DAILY [facility] Last Admin: 10/21/17 08:24 Dose: 50 mg Metoprolol Tartrate (Lopressor) 5 mg IVPUSH Q4H PRN PRN Reason: Tachycardia Mometasone Furoate/Formoterol Fumar (Dulera 200-5 Mcg) 2 puff IH BID [facility] Last Admin: 10/21/17 08:12 Dose: 2 puff Multivitamins (Thera) 1 each PO DAILY [facility] Last Admin: 10/21/17 08:25 Dose: 1 each Ondansetron HCl (Zofran Odt) 8 mg PO Q8HR PRN PRN Reason: Vomiting Ondansetron HCl (Zofran) 4 mg IV Q6H PRN PRN Reason: Nausea/Vomiting Oxycodone/Acetaminophen (Percocet 325-5 Mg) 1 tab PO Q4H PRN PRN Reason: Pain Last Admin: 10/19/17 01:20 Dose: 1 tab Polyethylene Glycol (Miralax) 17 gm PO DAILY [facility] Last Admin: 10/21/17 08:29 Dose: 17 gm Potassium Chloride (Pharmacy To Dose - Potassium Replacement) 1 dose .XX ASDIRECTED [facility] Senna/Docusate Sodium (Senna Plus) 2 tab PO BID PRN PRN Reason: Constipation Last Admin: 10/20/17 21:49 Dose: 2 tab Simvastatin (Zocor) 10 mg PO DAILY [facility] Last Admin: 10/21/17 08:25 Dose: 10 mg Sodium Chloride (Saline Flush) 10 ml FLUSH ASDIRECTED PRN PRN Reason: Keep Vein Open Last Admin: 10/18/17 21:14 Dose: 10 ml Discontinued Medications Acetaminophen/Codeine Phosphate (Tylenol With Codeine No.3 300mg/30mg) 1 tab PO Q4H PRN PRN Reason: Pain Albuterol/Ipratropium (Duoneb 3.0-0.5 Mg/3 Ml) 3 ml NEB ONETIME ONE Stop: 10/18/17 20:26 Last Admin: 10/18/17 20:59 Dose: 3 ml Ceftriaxone Sodium 2 gm/ (Sodium Chloride) 100 mls @ 200 mls/hr IV ONETIME ONE Stop: 10/18/17 20:54 Last Admin: 10/18/17 21:14 Dose: 200 mls/hr Sodium Chloride (Normal Saline) 1,000 mls @ 75 mls/hr IV ASDIRECTED [facility] Stop: 10/19/17 14:04 Last Admin: 10/19/17 01:21 Dose: 75 mls/hr Azithromycin 500 mg/ Sodium (Chloride) 250 mls @ 250 mls/hr IV ONETIME ONE Stop: 10/19/17 21:02 Last Admin: 10/19/17 21:32 Dose: 250 mls/hr Mometasone Furoate/Formoterol Fumar (Dulera 200-5 Mcg) 2 puff IH BID [facility] Mometasone Furoate/Formoterol Fumar (Dulera 200-5 Mcg) 2 puff IH ONETIME ONE Stop: 10/19/17 10:16 Last Admin: 10/19/17 10:08 Dose: 2 puff Non-Formulary Medication (Cranberry Fruit Concentrate [Cranberry]) 450 mg PO DAILY [facility] Breo Ellipta 200-25 (Mcg Inh 1 Puff) 0 puff INH DAILY [facility] Last Admin: 10/20/17 10:03 Dose: Not Given Oseltamivir Phosphate (Tamiflu) 75 mg PO ONETIME ONE Stop: 10/18/17 22:22 Last Admin: 02/19/18 22:29 Dose: 75 mg Oseltamivir Phosphate (Tamiflu) 30 mg PO BID [facility] Potassium Chloride (Klor-Con M20) 40 meq PO Q4H [facility] Stop: 10/19/17 12:01 Last Admin: 10/19/17 11:13 Dose: 40 meq Rivaroxaban (Xarelto) 20 mg PO DAILY@1700 [facility] Last Admin: 10/19/17 17:39 Dose: Not Given - Problem List & Annotations (1) Influenza A SNOMED Code(s): 872355106 Code(s): J10.1 - FLU DUE TO OTH IDENT INFLUENZA VIRUS W OTH RESP MANIFEST Status: Acute Priority: High Current Visit: Yes (2) Macular degeneration SNOMED Code(s): 899499700 Code(s): H35.30 - UNSPECIFIED MACULAR DEGENERATION Status: Chronic Priority: Low Current Visit: No Qualifiers: Macular degeneration type: unspecified type Eye laterality: unspecified Qualified Code(s): H35.30 - Unspecified macular degeneration (3) Heart failure SNOMED Code(s): 86893507 Code(s): I50.9 - HEART FAILURE, UNSPECIFIED Status: Chronic Priority: Low Current Visit: No Qualifiers: Heart failure type: unspecified Heart failure chronicity: unspecified Qualified Code(s): I50.9 - Heart failure, unspecified (4) HTN (hypertension) SNOMED Code(s): 63036477 Code(s): I10 - ESSENTIAL (PRIMARY) HYPERTENSION Status: Acute Priority: Medium Current Visit: Yes Qualifiers: Hypertension type: unspecified Qualified Code(s): I10 - Essential (primary ) hypertension (5) Lower extremity edema SNOMED Code(s): 776752433 Code(s): R60.0 - LOCALIZED EDEMA Status: Chronic Priority: Low Current Visit: Yes (6) History of deep venous thrombosis or pulmonary embolus SNOMED Code(s): 870801119 Code(s): MCH6904 - Status: Chronic Priority: Low Current Visit: No (7) Asthma SNOMED Code(s): 881521102 Code(s): J45.909 - UNSPECIFIED ASTHMA, UNCOMPLICATED Status: Chronic Priority: Low Current Visit: No Qualifiers: Asthma severity: unspecified severity Asthma persistence: unspecified Asthma complication type: unspecified Qualified Code(s): J45.909 - Unspecified asthma, uncomplicated (8) GERD (gastroesophageal reflux disease) SNOMED Code(s): 011402401 Code(s): K21.9 - GASTRO-ESOPHAGEAL REFLUX DISEASE WITHOUT ESOPHAGITIS Status: Chronic Priority: Low Current Visit: No Qualifiers: Esophagitis presence: esophagitis presence not specified Qualified Code(s) : K21.9 - Gastro-esophageal reflux disease without esophagitis (9) Arthritis SNOMED Code(s): 2083569 Code(s): M19.90 - UNSPECIFIED OSTEOARTHRITIS, UNSPECIFIED SITE Status: Chronic Priority: Low Current Visit: No (10) Osteoarthritis SNOMED Code(s): 618747994 Code(s): M19.90 - UNSPECIFIED OSTEOARTHRITIS, UNSPECIFIED SITE Status: Chronic Priority: Low Current Visit: No Qualifiers: Osteoarthritis location: unspecified site Osteoarthritis type: primary Qualified Code(s): M19.91 - Primary osteoarthritis, unspecified site (11) Age related osteoporosis SNOMED Code(s): 915013616 Code(s): M81.0 - AGE-RELATED OSTEOPOROSIS W/O CURRENT PATHOLOGICAL FRACTURE Status: Chronic Priority: Low Current Visit: No Qualifiers: Presence of current pathological fracture: unspecified Qualified Code(s): M81.0 - Age-related osteoporosis without current pathological fracture (12) Lymphoma SNOMED Code(s): 103497735 Code(s): C85.90 - NON-HODGKIN LYMPHOMA, UNSPECIFIED, UNSPECIFIED SITE Status: Chronic Priority: Low Current Visit: No Qualifiers: Lymphoma type: unspecified type Lymphoma site: unspecified region Qualified Code(s): C85.90 - Non-Hodgkin lymphoma, unspecified, unspecified site - My Orders Last 24 Hours: My Active Orders 10/20/17 09:00 Enoxaparin [Lovenox] 40 mg SUBCUT DAILY 10/22/17 05:11 BASIC METABOLIC PANEL,BMP [CHEM] AM CBC WITH AUTO DIFF [HEME] AM MAGNESIUM [CHEM] AM - Plan Plan:: I/P: Acute: Influenza A -Symptoms started last week -Reportedly diagnosed with pneumonia then and given antibiotic with no relief -Cough, fever, weakness, SOB -Continue Supportive care -Received Tamiflu x1 dose in ED; Symptoms started last week--> outside the 48hr window for recommended treatment -Reviewed CXR with Dr. Ranada - no definitive infiltrates -Fluids as ordered; caution due to hx/o heart failure -Tylenol for fever/pain Bronchitis -Still cough up white phlegm but better prior to admission -She feels congested -Will add dextromethorphan on her guaifenesin regimen -FV as directed Chronic: Impaired vision Macular degeneration A-fib in post-op Heart failure - home meds HTN - home meds HLD - home Asthma Hx/o DVT - home xarelto Lower extremity edema Constipation GERD Arthritis - home meds OA - home meds Osteoporosis Anemia Lymphoma successfully treated with chemotherapy Plan: She is clinically stable Continue current treatment Continue RT/PT/OT MRSA screening negative DVT prophylaxis: Home xarelto Activate [facility] for Nursing PT/OT after discharge CM/SW for discharge planning CM to call Chen Diego to make sure her is okay or seen at the clinic Other orders as indicated above PCP is Harmony Jordan at [facility] here in [place] Likely discharge tomorrow.
--- NOTE | 2017-10-21 11:06 | PCM.DCSUM1 ---
Discharge Summary - Hospital Course HPI Initial Comments: Delilah Negrete is an 87 yo female who since her ED today (10/18/17) with a cough , fever, and shortness of breath. She reports the symptoms started last week and she was seen at the walk-in clinic at [place] on Wednesday and diagnosed with pneumonia. She was started on Levaquin at that time, however symptoms have not gotten any better. She reports she still has a fever and productive cough, along with shortness of breath. She is weak and not eating much. Denied chest pain, abdominal pain, nausea, vomiting. In the ED temperature was 100.1. Pulse 91. Respirations 18. BP was high at 175/68. Pulse ox 97%. Labs are obtained: WBC is elevated at 11.35. Hemoglobin is 13.5. Hematocrit 41.7. She was normocytic. Closer elevated at 217,000. Neutrophils are normal at 69.7%. Sodium good 142. Potassium 3.6. Chloride 104. Carbon dioxide 27. Anion gap 14.6. BUN is high at 27. Creatinine is high at 1.4. EGFR is 36. Glucose is 205. Lactic acid 1.3. Calcium 9.3. Total bilirubin 0.4. Liver enzymes looked good with AST of 16, ALT at 24, alkaline phosphatase 52. CRP is 0.5. Albumin is good at 3.7. Influenza returns positive for influenza A. Blood cultures are obtained. She was given 2 g Rocephin in the ED. There is a questionable infiltrate in the right lower lung. She carries a history of: Impaired vision, macular degeneration, A. fib, heart failure, hypertension, DVT, chronic lower extremity edema, asthma triggered by allergens and cold weather, chronic cough, chronic constipation, GERD, hysterectomy, arthritis, osteoporosis, osteoporosis, vertigo, anemia, stage III large beta cell lymphoma, non-Albert lymphoma. Lymphoma was reportedly treated successfully with chemotherapy. She was never a smoker. She is subsequently admitted to the medical floor on telemetry. Her PCP is Harmony Jordan NP at [facility]. - Discharge Data Discharge Date: 10/21/17 (Admit date: 10/18/17) Discharge Disposition: Home, Self-Care 01 Condition: Good - Discharge Diagnosis/Problem(s) (1) Influenza A SNOMED Code(s): 897173509 ICD Code: J10.1 - FLU DUE TO OTH IDENT INFLUENZA VIRUS W OTH RESP MANIFEST Status: Acute Priority: High Current Visit: Yes (2) Macular degeneration SNOMED Code(s): 556049694 ICD Code: H35.30 - UNSPECIFIED MACULAR DEGENERATION Status: Chronic Priority: Low Current Visit: No Qualifiers: Macular degeneration type: unspecified type Eye laterality: unspecified Qualified Code(s): H35.30 - Unspecified macular degeneration (3) Heart failure SNOMED Code(s): 16678342 ICD Code: I50.9 - HEART FAILURE, UNSPECIFIED Status: Chronic Priority: Low Current Visit: No Qualifiers: Heart failure type: unspecified Heart failure chronicity: unspecified Qualified Code(s): I50.9 - Heart failure, unspecified (4) HTN (hypertension) SNOMED Code(s): 60725218 ICD Code: I10 - ESSENTIAL (PRIMARY) HYPERTENSION Status: Acute Priority: Medium Current Visit: Yes Qualifiers: Hypertension type: unspecified Qualified Code(s): I10 - Essential (primary ) hypertension (5) Lower extremity edema SNOMED Code(s): 603283065 ICD Code: R60.0 - LOCALIZED EDEMA Status: Chronic Priority: Low Current Visit: Yes (6) History of deep venous thrombosis or pulmonary embolus SNOMED Code(s): 604031814 ICD Code: [id number] - Status: Chronic Priority: Low Current Visit: No (7) Asthma SNOMED Code(s): 082640000 ICD Code: J45.909 - UNSPECIFIED ASTHMA, UNCOMPLICATED Status: Chronic Priority: Low Current Visit: No Qualifiers: Asthma severity: unspecified severity Asthma persistence: unspecified Asthma complication type: unspecified Qualified Code(s): J45.909 - Unspecified asthma, uncomplicated (8) GERD (gastroesophageal reflux disease) SNOMED Code(s): 639577597 ICD Code: K21.9 - GASTRO-ESOPHAGEAL REFLUX DISEASE WITHOUT ESOPHAGITIS Status: Chronic Priority: Low Current Visit: No Qualifiers: Esophagitis presence: esophagitis presence not specified Qualified Code(s) : K21.9 - Gastro-esophageal reflux disease without esophagitis (9) Arthritis SNOMED Code(s): 4564597 ICD Code: M19.90 - UNSPECIFIED OSTEOARTHRITIS, UNSPECIFIED SITE Status: Chronic Priority: Low Current Visit: No (10) Osteoarthritis SNOMED Code(s): 113531184 ICD Code: M19.90 - UNSPECIFIED OSTEOARTHRITIS, UNSPECIFIED SITE Status: Chronic Priority: Low Current Visit: No Qualifiers: Osteoarthritis location: unspecified site Osteoarthritis type: primary Qualified Code(s): M19.91 - Primary osteoarthritis, unspecified site (11) Age related osteoporosis SNOMED Code(s): 330644212 ICD Code: M81.0 - AGE-RELATED OSTEOPOROSIS W/O CURRENT PATHOLOGICAL FRACTURE Status: Chronic Priority: Low Current Visit: No Qualifiers: Presence of current pathological fracture: unspecified Qualified Code(s): M81.0 - Age-related osteoporosis without current pathological fracture (12) Lymphoma SNOMED Code(s): 154248535 ICD Code: C85.90 - NON-HODGKIN LYMPHOMA, UNSPECIFIED, UNSPECIFIED SITE Status: Chronic Priority: Low Current Visit: No Qualifiers: Lymphoma type: unspecified type Lymphoma site: unspecified region Qualified Code(s): C85.90 - Non-Hodgkin lymphoma, unspecified, unspecified site - Patient Summary/Data Consults: Consultations 10/19/17 00:22 Consult to Case Management [CONS] Routine OT Evaluation and Treatment [CONS] Routine PT Evaluation and Treatment [CONS] Routine Labs Pending at D/C: None Recommended Follow-up Testing/Procedures: Follow-up with PCP, Harmony Jordan, within 7-10 days of discharge, sooner if symptoms worsen or needed Hospital Course: I/P: Acute: Influenza A -Symptoms started last week -Reportedly diagnosed with pneumonia then and given antibiotic with no relief -Cough, fever, weakness, SOB -Continue Supportive care -Received Tamiflu x1 dose in ED; Symptoms started last week--> outside the 48hr window for recommended treatment -Reviewed CXR with Dr. Sanderson - no definitive infiltrates -Fluids as ordered; caution due to hx/o heart failure -Tylenol for fever/pain Bronchitis -Still cough up white phlegm but better prior to admission -She feels congested -Will add dextromethorphan on her guaifenesin regimen -FV as directed Chronic: Impaired vision Macular degeneration A-fib in post-op Heart failure - home meds HTN - home meds HLD - home Asthma Hx/o DVT - home xarelto Lower extremity edema Constipation GERD Arthritis - home meds OA - home meds Osteoporosis Anemia Lymphoma successfully treated with chemotherapy Plan: She is clinically stable Continue current treatment Continue RT/PT/OT MRSA screening negative DVT prophylaxis: Home xarelto Activate [facility] for Nursing PT/OT after discharge CM/ for discharge planning CM to call Chen Diego to make sure her is okay or seen at the clinic Other orders as indicated above PCP is Harmony Jordan at [facility] here in [place] responded well to treatment. She has been afebrile since her first day of admission. Blood cultures were negative. WBC has returned to normal. Her weakness and cough has improved. She will be discharged today on 5 days of azithromycin, cough suppressant, and a PRN albuterol inhaler. She is to follow- up with her PCP in 7-10 days of discharge. PT/OT is recommending outpatient PT/ OT after discharge. Patient reportedly refused home health. - Patient Instructions Diet: Heart Healthy Diet Activity: As Tolerated Driving: Do Not Drive (today ) Showering/Bathing: May Shower Notify Provider of: Fever, Increased Pain, Nausea and/or Vomiting (increased shortness of breath, chest pain ) - Discharge Plan Prescriptions/Med Rec: Albuterol [Proair HFA] 2 puff INH Q6HR PRN 15 Days #1 inhaler PRN Reason: sob/wheezing Azithromycin 500 mg PO DAILY 5 Days #5 tablet Dextromethorphan/guaiFENesin [Robitussin DM] 5 ml PO Q4H PRN #1 cup PRN Reason: Cough Home Medications: Home Meds Aspirin [Ecotrin] 81 mg PO DAILY 11/09/14 [History] Furosemide 60 mg PO DAILY 11/09/14 [History] Isosorbide Mononitrate [Imdur] 15 mg PO DAILY 11/09/14 [History] Loratadine [Claritin] 10 mg PO DAILY 11/09/14 [History] Metoprolol Succinate 50 mg PO DAILY 11/09/14 [History] Multivitamin [Multivitamins] 1 tab PO DAILY 11/09/14 [History] Ondansetron [Ondansetron ODT] 2 tab PO Q8HR PRN 01/07/15 [History] Polyethylene Glycol 3350 [MiraLAX] 17 gm PO DAILY 02/17/15 [History] Sennosides/Docusate Sodium [Senna-Docusate Sodium] 2 cap PO BID PRN 02/17/15 [ History] Calcium Carbonate/Vitamin D3 [Calcium 500-Vit D3 200 Caplet] 1 tab PO DAILY 04/14 [History] atorvaSTATin [Lipitor] 10 mg PO DAILY 12/14/16 [History] Allopurinol [Zyloprim] 200 mg PO DAILY 10/18/17 [History] Cranberry Fruit Concentrate [Cranberry] 450 mg PO DAILY 10/18/17 [History] Rivaroxaban [Xarelto] 20 mg PO 1700 10/18/17 [History] amLODIPine Bes/Olmesartan Med [Arely 10-40 MG] 1 tab PO DAILY 10/18/17 [History] oxyCODONE HCl/Acetaminophen [Percocet 5-325 mg Tablet] 1 tab PO Q4HR PRN [History] Breo Ellipta 200-25 Mcg INH 1 puff INH DAILY 10/19/17 [History] Albuterol [Proair HFA] 2 puff INH Q6HR PRN 15 Days #1 inhaler 10/21/17 [Rx] Azithromycin 500 mg PO DAILY 5 Days #5 tablet 10/21/17 [Rx] Dextromethorphan/guaiFENesin [Robitussin DM] 5 ml PO Q4H PRN #1 cup 10/21/17 [Rx ] Forms: ED Department Discharge Referrals: Harmony Jordan [employer] [Primary Care Provider] - - Discharge Summary/Plan Comment DC Time >30 min.: Yes (45 mins ) - General Info Admission Dx/Problem (Free Text: Pneumonia, Influenza Subjective Update: In to see Delilah today. She is doing well. Sitting up in chair. She has an occasional cough. Her was admitted last night and she is concerned about him. She will be discharged today. Her son can reportedly pick her up around 1730 tonight to [place] Of note: she did have an isolated 9 beat run of v-tach yesterday which as asymptomatic and did self terminate. No other concerns. She did have a BM today and her abdomen feels better as she reports she was getting constipated. She reports she slept poorly last night as she awoke around 2300 last night when nursing came to check her vitals and had difficulty falling asleep after. Functional Status: Reports: Pain Controlled, Tolerating Diet, Ambulating, Urinating. Denies: New Symptoms - Review of Systems General: Reports: Weakness (greatly improved ) HEENT: Reports: No Symptoms. Denies: Ear Pain, Eye Pain, Sinus Congestion, Sore Throat, Rhinitis Pulmonary: Reports: Cough, Wheezing (mild ). Denies: Shortness of Breath, Sputum Cardiovascular: Reports: No Symptoms. Denies: Chest Pain, Palpitations, Dyspnea on Exertion Gastrointestinal: Reports: No Symptoms. Denies: Abdominal Pain, Constipation, Diarrhea, Nausea, Vomiting Genitourinary: Reports: No Symptoms Musculoskeletal: Reports: No Symptoms Skin: Reports: No Symptoms Neurological: Reports: No Symptoms Psychiatric: Reports: No Symptoms - Patient Data Vitals - Most Recent: Last Vital Signs Temp 98.1 F 10/21/17 08:12 Pulse 80 10/21/17 08:24 Resp 17 10/21/17 05:02 BP 131/88 10/21/17 08:27 Pulse Ox 93 L 10/21/17 08:13 Weight - Most Recent: 164 lb 8 oz I&O - Last 24 hours: Intake & Output 10/20/17 10/21/17 10/21/17 22:59 06:59 14:59 Intake Total 860 375 Output Total 750 850 Balance 110 -475 Lab Results - Last 24 hrs: Laboratory Results - last 24 hr 10/21/17 10/21/17 Range/Units 05:51 05:51 WBC 6.24 (3.98-10.04) K/mm3 RBC 4.44 (3.98-5.22) M/mm3 Hgb 12.7 (11.2-15.7) gm/L Hct 39.4 (34.1-44.9) % MCV 88.7 (79.4-94.8) fl MCH 28.6 (25.6-32.2) pg MCHC 32.2 (32.2-35.5) g/dl RDW Std Deviation 50.5 H (36.4-46.3) fL Plt Count 189 (182-369) K/mm3 MPV 10.4 (9.4-12.3) fl Neut % (Auto) 50.7 (34.0-71.1) % Lymph % (Auto) 31.4 (19.3-51.7) % [place] % (Auto) 14.4 H (4.7-12.5) % Eos % (Auto) 3.0 (0.7-5.8) Baso % (Auto) 0.5 (0.1-1.2) % Neut # (Auto) 3.16 (1.56-6.13) K/mm3 Lymph # (Auto) 1.96 (1.18-3.74) K/mm3 [place] # (Auto) 0.90 H (0.24-0.36) K/mm3 Eos # (Auto) 0.19 (0.04-0.36) K/mm3 Baso # (Auto) 0.03 (0.01-0.08) K/mm3 Sodium 140 (136-145) mEq/L Potassium 3.9 (3.5-5.1) mEq/L Chloride 105 (98-107) mEq/L Carbon Dioxide 28 (21-32) mEq/L Anion Gap 10.9 (5-15) BUN 22 H (7-18) mg/dL Creatinine 1.1 H (0.55-1.02) mg/dL Est Cr Clr Drug Dosing 35.00 mL/min Estimated GFR (MDRD) 47 (>60) mL/min BUN/Creatinine Ratio 20.0 H (14-18) Glucose 101 (83-115) mg/dL Calcium 9.1 (8.5-10.1) mg/dL Magnesium 2.1 (1.8-2.4) mg/dl TE Results - Last 24 hrs: Microbiology 10/19/17 21:30 Respiratory Virus Panel (PCR) (TE) - Final Nasopharyngeal Swab Med Orders - Current: Current Medications Acetaminophen (Tylenol) 650 mg PO Q4H PRN PRN Reason: Pain (Mild 1-3)/fever Albuterol/Ipratropium (Duoneb 3.0-0.5 Mg/3 Ml) 3 ml NEB Q4H PRN PRN Reason: Shortness Of Breath/wheezing Last Admin: 10/19/17 20:23 Dose: 3 ml Allopurinol (Zyloprim) 200 mg PO DAILY [facility] Last Admin: 10/21/17 08:27 Dose: 200 mg Amlodipine Besylate (Norvasc) 10 mg PO DAILY [facility] Last Admin: 10/21/17 08:26 Dose: 10 mg Aspirin (Halfprin) 81 mg PO DAILY [facility] Last Admin: 10/21/17 08:26 Dose: 81 mg Benzonatate (Tessalon Perles) 200 mg PO BID PRN PRN Reason: Cough Last Admin: 10/20/17 18:12 Dose: 200 mg Calcium Carbonate (Calcium Carbonate/Vitamin D 1500 Mg-200 Unit) 1 tab PO DAILY [facility] Last Admin: 10/21/17 08:25 Dose: 1 tab Enoxaparin Sodium (Lovenox) 40 mg SUBCUT DAILY [facility] Last Admin: 10/21/17 08:29 Dose: 40 mg Furosemide (Lasix) 60 mg PO DAILY [facility] Last Admin: 10/21/17 08:26 Dose: 60 mg Guaifenesin/Phenylephrine HCl (Robitussin Dm) 5 ml PO Q4H PRN PRN Reason: Cough Last Admin: 10/20/17 21:49 Dose: 5 ml Hydralazine HCl (Apresoline) 10 mg IVPUSH Q4H PRN PRN Reason: Hypertension Last Admin: 10/19/17 01:21 Dose: 10 mg Azithromycin 500 mg/ Sodium (Chloride) 250 mls @ 250 mls/hr IV Q24H [facility] Last Admin: 10/21/17 08:23 Dose: 250 mls/hr Isosorbide Mononitrate (Imdur) 15 mg PO DAILY [facility] Last Admin: 10/21/17 08:27 Dose: 15 mg Loratadine (Claritin) 10 mg PO DAILY PRN PRN Reason: Allergies Lorazepam (Ativan) 2 mg IVPUSH Q4H PRN PRN Reason: Seizures Magnesium Sulfate (Pharmacy To Dose - Magnesium Replacement) 1 dose .XX ASDIRECTED [facility] Metoprolol Succinate (Toprol Xl) 50 mg PO DAILY [facility] Last Admin: 10/21/17 08:24 Dose: 50 mg Metoprolol Tartrate (Lopressor) 5 mg IVPUSH Q4H PRN PRN Reason: Tachycardia Mometasone Furoate/Formoterol Fumar (Dulera 200-5 Mcg) 2 puff IH BID [facility] Last Admin: 10/21/17 08:12 Dose: 2 puff Multivitamins (Thera) 1 each PO DAILY [facility] Last Admin: 10/21/17 08:25 Dose: 1 each Ondansetron HCl (Zofran Odt) 8 mg PO Q8HR PRN PRN Reason: Vomiting Ondansetron HCl (Zofran) 4 mg IV Q6H PRN PRN Reason: Nausea/Vomiting Oxycodone/Acetaminophen (Percocet 325-5 Mg) 1 tab PO Q4H PRN PRN Reason: Pain Last Admin: 10/19/17 01:20 Dose: 1 tab Polyethylene Glycol (Miralax) 17 gm PO DAILY [facility] Last Admin: 10/21/17 08:29 Dose: 17 gm Potassium Chloride (Pharmacy To Dose - Potassium Replacement) 1 dose .XX ASDIRECTED [facility] Senna/Docusate Sodium (Senna Plus) 2 tab PO BID PRN PRN Reason: Constipation Last Admin: 10/20/17 21:49 Dose: 2 tab Simvastatin (Zocor) 10 mg PO DAILY [facility] Last Admin: 10/21/17 08:25 Dose: 10 mg Sodium Chloride (Saline Flush) 10 ml FLUSH ASDIRECTED PRN PRN Reason: Keep Vein Open Last Admin: 10/18/17 21:14 Dose: 10 ml Discontinued Medications Acetaminophen/Codeine Phosphate (Tylenol With Codeine No.3 300mg/30mg) 1 tab PO Q4H PRN PRN Reason: Pain Albuterol/Ipratropium (Duoneb 3.0-0.5 Mg/3 Ml) 3 ml NEB ONETIME ONE Stop: 10/18/17 20:26 Last Admin: 10/18/17 20:59 Dose: 3 ml Ceftriaxone Sodium 2 gm/ (Sodium Chloride) 100 mls @ 200 mls/hr IV ONETIME ONE Stop: 10/18/17 20:54 Last Admin: 10/18/17 21:14 Dose: 200 mls/hr Sodium Chloride (Normal Saline) 1,000 mls @ 75 mls/hr IV ASDIRECTED [facility] Stop: 10/19/17 14:04 Last Admin: 10/19/17 01:21 Dose: 75 mls/hr Azithromycin 500 mg/ Sodium (Chloride) 250 mls @ 250 mls/hr IV ONETIME ONE Stop: 10/19/17 21:02 Last Admin: 10/19/17 21:32 Dose: 250 mls/hr Mometasone Furoate/Formoterol Fumar (Dulera 200-5 Mcg) 2 puff IH BID [facility] Mometasone Furoate/Formoterol Fumar (Dulera 200-5 Mcg) 2 puff IH ONETIME ONE Stop: 10/19/17 10:16 Last Admin: 10/19/17 10:08 Dose: 2 puff Non-Formulary Medication (Cranberry Fruit Concentrate [Cranberry]) 450 mg PO DAILY [facility] Breo Ellipta 200-25 (Mcg Inh 1 Puff) 0 puff INH DAILY [facility] Last Admin: 10/20/17 10:03 Dose: Not Given Oseltamivir Phosphate (Tamiflu) 75 mg PO ONETIME ONE Stop: 10/18/17 22:22 Last Admin: 10/18/17 22:29 Dose: 75 mg Oseltamivir Phosphate (Tamiflu) 30 mg PO BID [facility] Potassium Chloride (Klor-Con M20) 40 meq PO Q4H [facility] Stop: 10/19/17 12:01 Last Admin: 10/19/17 11:13 Dose: 40 meq Rivaroxaban (Xarelto) 20 mg PO DAILY@1700 [facility] Last Admin: 10/19/17 17:39 Dose: Not Given - Exam Quality Assessment: Reports: DVT Prophylaxis. Denies: Supplemental Oxygen General: Reports: Alert, Oriented, Cooperative, No Acute Distress HEENT: Reports: Pupils Equal, Pupils Reactive, EOMI, Mucous Membr. Moist/[place] Neck: Reports: Supple, Trachea Midline, No JVD, No Thyromegaly Lungs: Reports: Normal Respiratory Effort, Wheezing (upper airway) Cardiovascular: Reports: Regular Rate, Regular Rhythm GI/Abdominal Exam: Normal Bowel Sounds, Soft, Non-Tender, No Organomegaly, No Distention, No Abnormal Bruit, No Mass, Pelvis Stable (Female) Exam: Deferred Rectal (Female) Exam: Deferred Back Exam: Reports: Normal Inspection, Full Range of Motion Extremities: Normal Inspection, Normal Range of Motion, Non-Tender, No Pedal Edema, Normal Capillary Refill Skin: Reports: Warm, Dry, Intact Neurological: Reports: No New Focal Deficit Psy/Mental Status: Reports: Alert, Normal Affect, Normal Mood *Q Meaningful Use (DIS) - VTE *Q VTE Criteria *Q: - Stroke *Q Stroke Criteria *Q: - AMI *Q AMI Criteria *Q:
[2017-10-21 11:38] VITALS: BP 125/60
[2017-10-21] MEDS: guaiFENesin/Dextromethorphan 100-10 MG/5 ML Soln 5 ML Cup PO PRN (11:59)
== END 2017-10-21 17:35 | disposition home or self-care (01) | DRG 153 ==
LOC: JD.ED 20:08 → JD.MS 22:26
PROVIDERS: ADMIT Internal Medicine; ATTEND Internal Medicine
DX: J18.9 Pneumonia, unspecified organism (principal); J11.1 Influenza due to unidentified influenza virus with other respiratory manifestations; C85.90 Non-Hodgkin lymphoma, unspecified, unspecified site; H35.30 Unspecified macular degeneration; I11.0 Hypertensive heart disease with heart failure; I50.9 Heart failure, unspecified; Z86.718 Personal history of other venous thrombosis and embolism; Z79.01 Long term (current) use of anticoagulants; M19.90 Unspecified osteoarthritis, unspecified site; J45.909 Unspecified asthma, uncomplicated; K21.9 Gastro-esophageal reflux disease without esophagitis; M19.91 Primary osteoarthritis, unspecified site; M81.0 Age-related osteoporosis without current pathological fracture; I48.91 Unspecified atrial fibrillation; K59.09 Other constipation; D64.9 Anemia, unspecified; Z91.010 Allergy to peanuts; Z88.2 Allergy status to sulfonamides; Z88.8 Allergy status to other drugs, medicaments and biological substances; Z91.018 Allergy to other foods; Z79.82 Long term (current) use of aspirin; Z79.899 Other long term (current) drug therapy
CPT/HCPCS: 36415; 71046; 80053; 83605; 85025; 86140; 87040 ×2; 87804 ×2; 94640; 96365; 99285; J0696; J7030; J7050; 80048; 81001; 83735; 83880; 87486; 87581; 87633; 87641; 87798; 94760; 94761; 97110-GO; 97110-GP; 97116-GP; 97162-GP; 97165-GO; 97530-GO; 97535-GO; A9270-GY; J0360; J0456; J1650; J7040

== ENCOUNTER 2021-02-16 09:43 | Emergency (ER) | payer MEDICARE, OTHER ==
--- NOTE | 2021-02-16 11:36 | CR ---
Chest: Portable view of the chest was obtained. Comparison: Prior chest x-ray of 05/16/19. Heart is enlarged. Right-sided infusion catheter is seen. Lungs show no definite acute parenchymal change but are slightly hyperinflated suggesting emphysematous change. Bony structures are grossly intact. Impression: 1. Cardiomegaly. This is stable from prior study. 2. Probable emphysematous change. 3. Stable infusion catheter. Diagnostic code #2
[2021-02-16] MEDS ORDERED: Albuterol/Ipratropium 3.0-0.5 MG/3 ML Neb Soln NEB ONE (11:53)
[2021-02-16] MEDS ORDERED: Azithromycin 250 MG Tab PO ONE (11:54)
[2021-02-16] MEDS ORDERED: predniSONE 20 MG Tab PO ONE (11:55)
--- NOTE | 2021-02-16 12:01 | EDM.PDOC ---
ED HPI GENERAL MEDICAL PROBLEM - General Chief Complaint: Respiratory Problem Stated Complaint: COUGH AND URINARY ISSUES Time Seen by Provider: 02/16/21 09:54 Source of Information: Reports: Patient History Limitations: Reports: No Limitations - History of Present Illness INITIAL COMMENTS - FREE TEXT/NARRATIVE: The patient presents from [facility] with her daughter for a cough. This has been going on for about 2 weeks. It is productive at times and it is keeping her up at times. She has no fever or chills. She did have some chest pain at times to the left chest. She has no shortness of breath. She has no abdominal pain, nausea or vomiting. She did get her COVID shot. Onset: Gradual Duration: Week(s): (2) Location: Reports: Chest Quality: Reports: Ache Severity: Mild Improves with: Reports: None Worsens with: Reports: None Associated Symptoms: Reports: Chest Pain, Cough. Denies: Fever/Chills, Headaches, Nausea/Vomiting, Shortness of Breath Right Chest Pain Score (Numeric/FACES): 2 - Related Data Allergies Allergy/AdvReac Type Severity Reaction Status Date / Time nitrofurantoin Allergy Rash Verified 02/16/21 10:01 house dust AdvReac Cough Verified 02/16/21 10:01 peanut AdvReac Cough Verified 02/16/21 10:01 Sulfa (Sulfonamide AdvReac Diarrhea Verified 02/16/21 10:01 Antibiotics) popcorn AdvReac Cough Uncoded 05/15/19 02:49 Home Meds: Home Meds Aspirin [Ecotrin EC] 81 mg PO DAILY 11/09/14 [History] Loratadine [Claritin] 10 mg PO DAILY PRN 11/09/14 [History] Multivitamin [Multivitamins] 1 tab PO DAILY 11/09/14 [History] Ondansetron [Ondansetron ODT] 2 tab PO Q8HR PRN 01/07/15 [History] Sennosides/Docusate Sodium [Senna-Docusate Sodium] 2 cap PO BID PRN 02/17/15 [History] Calcium Carbonate/Vitamin D3 [Calcium 500-Vit D3 200 Caplet] 1 tab PO DAILY 10/07/15 [History] atorvaSTATin [Lipitor] 10 mg PO DAILY 12/14/16 [History] amLODIPine Bes/Olmesartan Med [Arely 10-40 MG] 10 mg PO DAILY 10/18/17 [History] Albuterol [Proair HFA] 2 puff INH Q6HR PRN 15 Days #1 inhaler 10/21/17 [Rx] Dextromethorphan/guaiFENesin [Robitussin DM] 5 ml PO Q4H PRN #1 cup 10/21/17 [Rx] Apixaban [Eliquis] 5 mg PO BID 05/15/19 [History] Ferrous Sulfate 325 mg PO DAILY 05/15/19 [History] Fluticasone/Vilanterol [Breo Ellipta 200-25 MCG Inhalation Kit] 1 puff INH DAILY 05/15/19 [History] Levothyroxine 75 mcg PO DAILY 05/15/19 [History] Lidocaine 5% [Lidoderm 5%] 1 patch TOP Q12HR 05/15/19 [History] Magnesium Oxide 400 mg PO BID 05/15/19 [History] Meclizine [Antivert] 25 mg PO Q8H PRN 05/15/19 [History] Mirabegron [Myrbetriq] 25 mg PO DAILY 05/15/19 [History] Omeprazole 20 mg PO DAILY 05/15/19 [History] Potassium Chloride [Klor-Con 10] 10 meq PO DAILY 05/15/19 [History] Prochlorperazine [Compazine] 10 mg PO Q6H PRN 05/15/19 [History] polyethylene glycoL 3350 [MiraLAX] 17 gm PO DAILY 05/15/19 [History] Isosorbide Mononitrate [Imdur] 15 mg PO DAILY #0 05/19/19 [Rx] Metoprolol Succinate 50 mg PO DAILY #0 05/19/19 [Rx] Saccharomyces Boulardii [Florastor] 250 mg PO BID #6 capsule 05/19/19 [Rx] Azithromycin [Zithromax] 250 mg PO DAILY #4 tab 02/16/21 [Rx] Codeine/Promethazine [Phenergan with Codeine] 5 - 10 ml PO Q6HR PRN #300 ml 02/16/21 [Rx] Furosemide [Lasix] 60 mg PO DAILY 02/16/21 [History] predniSONE [Prednisone] 20 mg PO DAILY #5 tablet 02/16/21 [Rx] Past Medical History HEENT History: Reports: Impaired Vision, Macular Degeneration Other HEENT History: wears glasses Cardiovascular History: Reports: Afib, Blood Clots/VTE/DVT, Heart Failure, Hypertension, SOB on Exertion Other Cardiovascular History: DVT, lower extremity edema, Afib was briefly post op Respiratory History: Reports: Asthma Other Respiratory History: asthma is triggered by allergens and cold weather and upper respiratory infections. 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 - Infectious Disease History Infectious Disease History: Reports: Chicken Pox, Influenza, Measles - Past Surgical History Head Surgeries/Procedures: Reports: None HEENT Surgical History: Reports: Cataract Surgery GI Surgical History: Reports: Other (See Below) Other GI Surgeries/Procedures: resection Female Surgical History: Reports: None Endocrine Surgical History: Reports: None Neurological Surgical History: Reports: Other (See Below) Other Neurological Surgeries/Procedures: spinal stenosis surgery Musculoskeletal Surgical History: Reports: Hip Replacement Social & Family History - Family History Family Medical History: No Pertinent Family History Oncologic: Reports: Bladder, Bone - Tobacco Use Tobacco Use Status *Q: Never Tobacco User - Caffeine Use Caffeine Use: Reports: None Other Caffeine Use: drinks decaff coffee and every once in awhile will have a pop - Recreational Drug Use Recreational Drug Use: No - Living Situation & Occupation Living situation: Reports: Occupation: Retired ED ROS GENERAL - Review of Systems Review Of Systems: See Below Constitutional: Reports: No Symptoms HEENT: Reports: No Symptoms Respiratory: Reports: Cough. Denies: Shortness of Breath Cardiovascular: Reports: Chest Pain Endocrine: Reports: No Symptoms GI/Abdominal: Reports: No Symptoms : Reports: No Symptoms ED EXAM, GENERAL - Physical Exam Exam: See Below Exam Limited By: No Limitations General Appearance: Alert, No Apparent Distress Ears: Normal External Exam Nose: Normal Inspection Head: Atraumatic, Normocephalic Neck: Normal Inspection Respiratory/Chest: No Respiratory Distress, Lungs Clear, Normal Breath Sounds Cardiovascular: Regular Rate, Rhythm, No Edema, No Murmur GI/Abdominal: Soft, Non-Tender, No Organomegaly, No Mass Back Exam: Normal Inspection Extremities: Normal Inspection #1 Interpretation EKG Date: 02/16/21 Time: 11:05 Rhythm: NSR Rate (Beats/Min): 74 [place]: Normal P-Wave: Present QRS: Normal ST-T: Normal QT: Normal Course - Vital Signs Last Recorded V/S: Last Vital Signs Temp 98.4 F 02/16/21 09:55 Pulse 79 02/16/21 09:55 Resp 13 02/16/21 09:55 BP 163/62 H 02/16/21 09:55 Pulse Ox 93 L 02/16/21 09:55 - Orders/Labs/Meds Orders: Active Orders 24 hr Category Date Time Status Cardiac Monitoring [RC] . DIRECTED Care 02/16/21 10:22 Active EKG Documentation Completion [RC] STAT Care 02/16/21 10:26 Active RT Aerosol Therapy [RC] ASDIRECTED Care 02/16/21 11:54 Active predniSONE Med 02/16/21 11:55 Once 20 mg PO ONETIME ONE Medication Orders Prednisone (Prednisone 20 Mg Tab) 20 mg PO ONETIME ONE Stop: 02/16/21 11:56 Labs: Laboratory Tests 02/16/21 02/16/21 02/16/21 Range/Units 10:30 10:41 10:41 WBC 6.65 (3.98-10.04) K/mm3 RBC 3.97 L (3.98-5.22) M/mm3 Hgb 11.6 (11.2-15.7) gm/dl Hct 36.3 (34.1-44.9) % MCV 91.4 D (79.4-94.8) fl MCH 29.2 (25.6-32.2) pg MCHC 32.0 L (32.2-35.5) g/dl RDW Std Deviation 49.2 H (36.4-46.3) fL Plt Count 218 (182-369) K/mm3 MPV 9.9 (9.4-12.3) fl Neut % (Auto) 69.1 (34.0-71.1) % Lymph % (Auto) 18.6 L (19.3-51.7) % Luce % (Auto) 10.2 (4.7-12.5) % Eos % (Auto) 1.7 (0.7-5.8) Baso % (Auto) 0.2 (0.1-1.2) % Neut # (Auto) 4.60 (1.56-6.13) K/mm3 Lymph # (Auto) 1.24 (1.18-3.74) K/mm3 Luce # (Auto) 0.68 H (0.24-0.36) K/mm3 Eos # (Auto) 0.11 (0.04-0.36) K/mm3 Baso # (Auto) 0.01 (0.01-0.08) K/mm3 Sodium 143 (136-145) mEq/L Potassium 3.8 (3.5-5.1) mEq/L Chloride 104 (98-107) mEq/L Carbon Dioxide 29 (21-32) mEq/L Anion Gap 13.8 (5-15) BUN 23 H (7-18) mg/dL Creatinine 1.3 H (0.55-1.02) mg/dL Est Cr Clr Drug Dosing 30.18 mL/min Estimated GFR (MDRD) 39 (>60) mL/min BUN/Creatinine Ratio 17.7 (14-18) Glucose 105 H (70-99) mg/dL Calcium 9.7 (8.5-10.1) mg/dL Total Bilirubin 0.5 (0.2-1.0) mg/dL AST 17 (15-37) U/L ALT 24 (14-59) U/L Alkaline Phosphatase 72 (46-116) U/L Troponin I < 0.017 (0.00-0.056) ng/mL C-Reactive Protein <0.2 (<1.0) mg/dL NT-Pro-B Natriuret Pep (0-450) pg/mL Total Protein 6.5 (6.4-8.2) g/dl Albumin 3.6 (3.4-5.0) g/dl Globulin 2.9 gm/dL Albumin/Globulin Ratio 1.2 (1-2) SARS-CoV-2 RNA (GABRIEL) Negative (NEGATIVE) 02/16/21 Range/Units 10:41 WBC (3.98-10.04) K/mm3 RBC (3.98-5.22) M/mm3 Hgb (11.2-15.7) gm/dl Hct (34.1-44.9) % MCV (79.4-94.8) fl MCH (25.6-32.2) pg MCHC (32.2-35.5) g/dl RDW Std Deviation (36.4-46.3) fL Plt Count (182-369) K/mm3 MPV (9.4-12.3) fl Neut % (Auto) (34.0-71.1) % Lymph % (Auto) (19.3-51.7) % Luce % (Auto) (4.7-12.5) % Eos % (Auto) (0.7-5.8) Baso % (Auto) (0.1-1.2) % Neut # (Auto) (1.56-6.13) K/mm3 Lymph # (Auto) (1.18-3.74) K/mm3 Luce # (Auto) (0.24-0.36) K/mm3 Eos # (Auto) (0.04-0.36) K/mm3 Baso # (Auto) (0.01-0.08) K/mm3 Sodium (136-145) mEq/L Potassium (3.5-5.1) mEq/L Chloride (98-107) mEq/L Carbon Dioxide (21-32) mEq/L Anion Gap (5-15) BUN (7-18) mg/dL Creatinine (0.55-1.02) mg/dL Est Cr Clr Drug Dosing mL/min Estimated GFR (MDRD) (>60) mL/min BUN/Creatinine Ratio (14-18) Glucose (70-99) mg/dL Calcium (8.5-10.1) mg/dL Total Bilirubin (0.2-1.0) mg/dL AST (15-37) U/L ALT (14-59) U/L Alkaline Phosphatase (46-116) U/L Troponin I (0.00-0.056) ng/mL C-Reactive Protein (<1.0) mg/dL NT-Pro-B Natriuret Pep 900 H (0-450) pg/mL Total Protein (6.4-8.2) g/dl Albumin (3.4-5.0) g/dl Globulin gm/dL Albumin/Globulin Ratio (1-2) SARS-CoV-2 RNA (GABRIEL) (NEGATIVE) Meds: Medications Generic Name Dose Route Start Last Admin Trade Name Freq PRN Reason Stop Dose Admin Prednisone 20 mg 02/16/21 11:55 Prednisone 20 Mg Tab PO 02/16/21 11:56 ONETIME ONE Discontinued Medications Generic Name Dose Route Start Last Admin Trade Name Freq PRN Reason Stop Dose Admin Albuterol/Ipratropium 3 ml 02/16/21 11:53 Albuterol/Ipratropium 3.0-0.5 Mg/3 Ml Neb Soln NEB 02/16/21 11:54 ONETIME ONE Azithromycin 500 mg 02/16/21 11:54 Azithromycin 250 Mg Tab PO 02/16/21 11:55 ONETIME ONE - Re-Assessments/Exams Free Text/Narrative Re-Assessment/Exam: 02/16/21 12:02 I ordered an EKG, CXR and labs. Her EKG shows a NSR with no acute changes. Her CXR shows cardiomegaly. This is stable from prior study. Probable emphysematous change. Stable infusion catheter. Her CBC looks good. Her creatinine is elevated at 1.3. Her troponin is negative. Her BNP was 900 but no congestive changes on the CXR. Her COVID 19 is negative. I feel she has bronchitis. I will give her a duoneb here, prednisone 20mg PO and zithromax 500mg. I will then get her prescriptions for prednisone, zithromax and some phenergan with codeine. Departure - Departure Time of Disposition: 12:10 Disposition: Home, Self-Care 01 Condition: Good Clinical Impression: Bronchitis - Discharge Information *PRESCRIPTION DRUG MONITORING PROGRAM REVIEWED*: Not Applicable *COPY OF PRESCRIPTION DRUG MONITORING REPORT IN PATIENT AGUILA: Not Applicable Prescriptions: Codeine/Promethazine [Phenergan with Codeine] 5 - 10 ml PO Q6HR PRN #300 ml PRN Reason: Cough predniSONE [Prednisone] 20 mg PO DAILY #5 tablet Azithromycin [Zithromax] 250 mg PO DAILY #4 tab Referrals: Kendall Frye MD [Primary Care Provider] - Additional Instructions: Take the zithromax and prednisone daily for 4 days starting tomorrow. Take phenergan with codeine 5 to 10mls every 6 hours as needed for cough. Try the 5mls first and see how your tolerate it. Follow up with your doctor within a week. Please return if you are worse. Sepsis Event Note (ED) - Evaluation Sepsis Screening Result: No Definite Risk - Focused Exam Vital Signs: Vital Signs Temp Pulse Resp BP Pulse Ox 02/16/21 09:55 98.4 F 79 13 163/62 H 93 L - My Orders Last 24 Hours: My Active Orders 02/16/21 10:22 Cardiac Monitoring [RC] . DIRECTED 02/16/21 10:26 EKG Documentation Completion [RC] STAT 02/16/21 11:54 RT Aerosol Therapy [RC] ASDIRECTED 02/16/21 11:55 predniSONE 20 mg PO ONETIME ONE - Assessment/Plan Last 24 Hours: My Active Orders 02/16/21 10:22 Cardiac Monitoring [RC] . DIRECTED 02/16/21 10:26 EKG Documentation Completion [RC] STAT 02/16/21 11:54 RT Aerosol Therapy [RC] ASDIRECTED 02/16/21 11:55 predniSONE 20 mg PO ONETIME ONE
[2021-02-16 12:23] VITALS: BP 120/81; PULSE 70
== END 2021-02-16 12:37 | disposition home or self-care (01) ==
LOC: JD.ED 09:43
DX: J40 Bronchitis, not specified as acute or chronic (principal); I48.91 Unspecified atrial fibrillation; I11.0 Hypertensive heart disease with heart failure; I50.9 Heart failure, unspecified; K21.9 Gastro-esophageal reflux disease without esophagitis; M19.90 Unspecified osteoarthritis, unspecified site; E03.9 Hypothyroidism, unspecified; Z20.822 Contact with and (suspected) exposure to COVID-19; Z88.1 Allergy status to other antibiotic agents; Z91.010 Allergy to peanuts; Z88.2 Allergy status to sulfonamides; Z91.018 Allergy to other foods; Z79.82 Long term (current) use of aspirin; Z79.01 Long term (current) use of anticoagulants; Z79.899 Other long term (current) drug therapy; Z86.718 Personal history of other venous thrombosis and embolism
CPT/HCPCS: 36415; 71045; 80053; 83880; 84484; 85025; 86140; 93005; 94640; 99284; A9270; J7512; U0002; 93010